=== PATIENT | male | born 1955 | race Caucasian/White ===

== ENCOUNTER → 2017-06-13 | Outpatient (CLI) | payer OTHER ==
--- NOTE | 2017-06-13 17:57 | RADIOLOGY REPORT (SQ) ---
EXAM DESCRIPTION: KUB COMPLETED DATE/TIME: 06/13/2017 3:05 pm REASON FOR STUDY: CALCULUS OF KIDNEY N20.0 CALCULUS OF KIDNEY COMPARISON: May 2016 NUMBER OF VIEWS: One view. TECHNIQUE: Supine radiographic image of the abdomen acquired. LIMITATIONS: None. FINDINGS: BOWEL GAS PATTERN: Normal bowel gas pattern. No dilated loops. CALCIFICATIONS: No suspicious calcifications. SOFT TISSUES: No gross mass or suggestion of organomegaly. HARDWARE: None in the abdomen. BONES: No acute fracture. No worrisome bone lesions. OTHER: No other significant finding. IMPRESSION: NO RADIOGRAPHIC EVIDENCE FOR ACUTE ABDOMINAL DISEASE. TECHNICAL DOCUMENTATION: JOB ID: [id number] [employer]- All Rights Reserved
== END ==
LOC: OD 14:49
PROVIDERS: ATTEND Urology
DX: N20.0 Calculus of kidney (principal)
CPT/HCPCS: 74000

== ENCOUNTER 2017-12-04 12:03 | Emergency (ER) | payer OTHER ==
[2017-12-04] MEDS ORDERED: DEXTROSE 50%-WATER 25 GM/50 ML DISP.SYRIN IV ONE ×2 (12:25→14:23)
--- NOTE | 2017-12-04 12:25 | ER Document Report ---
ED General - General Stated Complaint: BLOOD SUGAR CONCERNS Time Seen by Provider: 12/04/17 12:24 Notes: Patient has been taking 120 units of long-acting insulin at night. Has had a few episodes of hypoglycemia. Today while at work began to feel a little confused. Check blood sugar and it was 37. EMS arrived. Was given an amp of D50 as well as some oral glucose. Feeling better at this time. TRAVEL OUTSIDE OF THE [place] IN LAST 30 DAYS: No - HPI Onset: Just prior to arrival Onset/Duration: Sudden Quality of pain: No pain Associated symptoms: None - Related Data Allergies/Adverse Reactions: No Known Allergies Allergy (Unverified 09/29/14 13:58) Past Medical History - General Information source: Patient - Social History Smoking Status: Never Smoker Cigarette use (# per day): No Smoking Education Provided: No Drug Abuse: None Lives with: Family Family History: Reviewed & Not Pertinent - Past Medical History Cardiac Medical History: Reports: Hx Hypercholesterolemia, Hx Hypertension Denies: Hx Congestive Heart Failure, Hx Coronary Artery Disease, Hx DVT, Hx Pulmonary Embolism Pulmonary Medical History: Reports: Hx Bronchitis Denies: Hx Asthma, Hx COPD Neurological Medical History: Denies: Hx Seizures Endocrine Medical History: Reports: Hx Diabetes Mellitus Type 2. Denies: Hx Diabetes Mellitus Type 1, Hx Hyperthyroidism, Hx Hypothyroidism GI Medical History: Denies: Hx Cirrhosis, Hx Hepatitis Musculoskeltal Medical History: Reports Hx Arthritis Skin Medical History: Denies Hx Eczema, Denies Hx Psoriasis Psychiatric Medical History: Denies: Hx Depression Infectious Medical History: Denies: Hx Hepatitis Review of Systems - Review of Systems Constitutional: No symptoms reported, Chills, Diaphoresis, Weakness EENT: No symptoms reported Cardiovascular: No symptoms reported Respiratory: No symptoms reported Gastrointestinal: No symptoms reported Genitourinary: No symptoms reported Male Genitourinary: No symptoms reported Musculoskeletal: No symptoms reported Skin: No symptoms reported Hematologic/Lymphatic: No symptoms reported Neurological/Psychological: No symptoms reported Physical Exam - Vital signs Vitals: Resp Pulse Ox 19 94 12/04/17 12:29 12/04/17 12:29 Interpretation: Normal - General General appearance: Appears well, Alert - HEENT Head: Normocephalic, Atraumatic Eyes: Normal Pupils: PERRL - Respiratory Respiratory status: No respiratory distress Chest status: Nontender Breath sounds: Normal Chest palpation: Normal - Cardiovascular Rhythm: Regular Heart sounds: Normal auscultation Murmur: No - Abdominal Inspection: Normal Distension: No distension Bowel sounds: Normal Tenderness: Nontender Organomegaly: No organomegaly - Back Back: Normal, Nontender - Extremities General upper extremity: Normal inspection, Nontender, Normal color, Normal ROM , Normal temperature General lower extremity: Normal inspection, Nontender, Normal color, Normal ROM , Normal temperature, Normal weight bearing. No: Irena's sign - Neurological Neuro grossly intact: Yes Cognition: Normal Orientation: AAOx4 Mana Coma Scale Eye Opening: Spontaneous Mana Coma Scale Verbal: Oriented [place] Coma Scale Motor: Obeys Commands Mana Coma Scale Total: 15 Speech: Normal Motor strength normal: LUE, RUE, LLE, RLE Sensory: Normal - Psychological Associated symptoms: Normal affect, Normal mood - Skin Skin Temperature: Warm Skin Moisture: Dry Skin Color: Normal Course - Re-evaluation Re-evalutation: 12/04/17 13:46 The blood sugar after triage showed blood sugar trending back down. Second dose of D50 given. Will continue to monitor here and repeat blood draws. 12/04/17 15:26 Blood sugar coming up. Last blood sugar was 99. Patient has eaten. No further significant drops. Patient was given amp of D50 2. Strict instructions were given to the patient with regards to blood sugar. Will need to keep checking throughout the day. Gave instructions regarding what to do about his insulin dosing tonight. Comfortable discharging here shortly. 12/04/17 16:21 Sugar now 121. Patient feeling much better. Patient wants to go home. States he will continue to check his blood sugar throughout the afternoon and evening. Will DC. - Vital Signs Vital signs: Temp Pulse Resp BP Pulse Ox 19 146/93 H 94 12/04/17 16:01 12/04/17 16:01 12/04/17 16:01 - Laboratory Result Diagrams: 12/04/17 12:20 12/04/17 12:20 Laboratory results interpreted by me: 12/04/17 12/04/17 12/04/17 12:20 12:20 13:00 Lymphocytes % 12.1 L BUN 25 H Creatinine 1.45 H Est GFR ( Amer) 59 L Est GFR (Non-Af Amer) 49 L Glucose 40 L* POC Glucose 149 H - EKG Interpretation by Me EKG shows normal: Sinus rhythm, Ensign, Intervals, QRS Complexes, ST-T Waves When compared to previous EKG there are: No significant change - T-wave abnormalities but no significant change from prior Discharge - Discharge Clinical Impression: Diabetic hypoglycemia Condition: Good Instructions: Hypoglycemia ([facility]) Additional Instructions: Least decrease your long acting insulin to 90 units in the evening. Check your blood sugar in the morning as well as in the evening. Please call your fire claims adjuster and get medication changes as warranted. Return immediately for any worsening symptoms or concerns. Referrals: SHIELA QUINTEROS MD [Primary Care Provider] - Follow up as needed
[2017-12-04 12:53] LABS: ABSOLUTE BASOPHILS # (AUTO) 0.1 10^3/uL (0.0-0.2); ABSOLUTE EOSINOPHILS # (AUTO) 0.3 10^3/uL (0.0-0.6); ABSOLUTE LYMPHOCYTES (AUTO) 1.2 10^3/uL (0.5-4.7); ABSOLUTE NEUT (AUTO) 7.1 10^3/uL (1.7-8.2); BASOPHILS % (AUTO) 0.8 % (0-2); EOSINOPHILS % (AUTO) 3.6 % (0-6); LYMPHOCYTES % (AUTO) 12.1 % (13-45); MEAN CORPUSCULAR HEMOGLOBIN 32.3 pg (27.0-33.4); MEAN CORPUSCULAR HGB CONC 34.2 g/dL (32.0-36.0); MEAN CORPUSCULAR VOLUME 94 fl (80-97); MONOCYTES % (AUTO) 10.1 % (3-13); PLATELET COUNT 242 10^3/uL (150-450); RED BLOOD COUNT 4.35 10^6/uL (4.35-5.55); RED CELL DISTRIBUTION WIDTH 13.8 % (11.5-14.0); SEGMENTED NEUTROPHILS % (AUTO) 73.4 % (42-78); TOTAL CELLS COUNTED % (AUTO) 100 %; WHITE BLOOD COUNT 9.7 10^3/uL (4.0-10.5)
[2017-12-04 13:04] LABS: ALANINE AMINOTRANSFERASE 26 U/L (21-72); ALBUMIN 4.7 g/dL (3.5-5.0); ALKALINE PHOSPHATASE 87 U/L (38-126); ANION GAP 11 (5-19); ASPARTATE AMINO TRANSFERASE 36 U/L (17-59); BILIRUBIN,DIRECT 0.2 mg/dL (0.0-0.4); BILIRUBIN,TOTAL 0.6 mg/dL (0.2-1.3); BLOOD UREA NITROGEN 25 mg/dL (7-20); CALCIUM 9.7 mg/dL (8.4-10.2); CARBON DIOXIDE 26 mmol/L (22-30); CHLORIDE 105 mmol/L (98-107); POTASSIUM 4.1 mmol/L (3.6-5.0); SODIUM 141.5 mmol/L (137-145); TOTAL PROTEIN 8.1 g/dL (6.3-8.2)
[2017-12-04 13:11] LABS: GLUCOSE 40 mg/dL (75-110)
[2017-12-04 16:54] VITALS: BP 143/85
--- NOTE | 2017-12-04 18:24 | EKG REPORT ---
SEVERITY:- BORDERLINE ECG - SINUS RHYTHM BORDERLINE T WAVE ABNORMALITIES LATERAL LEADS. : Confirmed by: Hardeep Adamson MD 04-Dec-2017 18:23:57
== END 2017-12-04 17:03 | disposition home or self-care (01) ==
LOC: ER 12:03
DX: E11.649 Type 2 diabetes mellitus with hypoglycemia without coma (principal)
CPT/HCPCS: 93005; 96376; 99285; 96374; 36415; 82962; 85025; 80053; 84484; 93010; J3490

== ENCOUNTER 2018-05-14 17:12 | Inpatient (IN) | payer OTHER ==
--- NOTE | 2018-05-14 18:44 | ER Document Report ---
ED Medical Screen (RME) - General Chief Complaint: Foot Pain Stated Complaint: LEFT SWOLLEN TOE Time Seen by Provider: 05/14/18 18:41 Mode of Arrival: Ambulatory Information source: Patient Notes: 62 yo DM2 insulin dependednt, HTN, anxiety male accidentally snagged 2nd toe left foot nail off 2-3 weeks ago. sent by his primary care celina due to swelling and pain, red. not draining. Low grade fever. TRAVEL OUTSIDE OF THE [place] IN LAST 30 DAYS: No - Related Data Allergies/Adverse Reactions: No Known Allergies Allergy (Unverified 09/29/14 13:58) Past Medical History - Past Medical History Cardiac Medical History: Reports: Hx Hypercholesterolemia, Hx Hypertension Denies: Hx Congestive Heart Failure, Hx Coronary Artery Disease, Hx DVT, Hx Pulmonary Embolism Pulmonary Medical History: Reports: Hx Bronchitis Denies: Hx Asthma, Hx COPD Neurological Medical History: Denies: Hx Seizures Endocrine Medical History: Reports: Hx Diabetes Mellitus Type 2. Denies: Hx Diabetes Mellitus Type 1, Hx Hyperthyroidism, Hx Hypothyroidism Renal/ Medical History: Denies: Hx Peritoneal Dialysis GI Medical History: Denies: Hx Cirrhosis, Hx Hepatitis Musculoskeltal Medical History: Reports Hx Arthritis Skin Medical History: Denies Hx Eczema, Denies Hx Psoriasis Psychiatric Medical History: Denies: Hx Depression Infectious Medical History: Denies: Hx Hepatitis Past Surgical History: Reports: Hx Orthopedic Surgery - left hip Physical Exam - Vital signs Vitals: Temp Pulse Resp BP Pulse Ox 99.7 F 105 H 20 162/81 H 96 05/14/18 17:27 05/14/18 17:27 05/14/18 17:27 05/14/18 17:27 05/14/18 17:27 Course - Vital Signs Vital signs: Temp Pulse Resp BP Pulse Ox 99.7 F 105 H 20 162/81 H 96 05/14/18 17:27 05/14/18 17:27 05/14/18 17:27 05/14/18 17:27 05/14/18 17:27 Doctor's Discharge - Discharge Referrals: SHIELA QUINTEROS MD [Primary Care Provider] - Follow up as needed
[2018-05-14] MEDS ORDERED: VANCOMYCIN HCL INJ 1000 MG VIAL IV ONE (18:50)
[2018-05-14 19:34] LABS: VENOUS BLOOD BASE EXCESS 1.4 mmol/L; VENOUS BLOOD HCO3 26.8 mmol/L (20-32); VENOUS BLOOD PCO2 45.2 mmHg (35-63); VENOUS BLOOD PH 7.39 (7.30-7.42)
[2018-05-14 19:41] LABS: ABSOLUTE BASOPHILS # (AUTO) 0.1 10^3/uL (0.0-0.2); ABSOLUTE EOSINOPHILS # (AUTO) 0.1 10^3/uL (0.0-0.6); ABSOLUTE MONOCYTES (AUTO) 1.4 10^3/uL (0.1-1.4); ABSOLUTE NEUT (AUTO) 7.5 10^3/uL (1.7-8.2); BASOPHILS % (AUTO) 0.8 % (0-2); EOSINOPHILS % (AUTO) 1.3 % (0-6); HEMATOCRIT 42.2 % (37.9-51.0); HEMOGLOBIN 14.3 g/dL (13.5-17.0); LYMPHOCYTES % (AUTO) 9.6 % (13-45); MEAN CORPUSCULAR HEMOGLOBIN 31.7 pg (27.0-33.4); MEAN CORPUSCULAR HGB CONC 33.9 g/dL (32.0-36.0); MEAN CORPUSCULAR VOLUME 93 fl (80-97); MONOCYTES % (AUTO) 14.1 % (3-13); PLATELET COUNT 222 10^3/uL (150-450); RED BLOOD COUNT 4.52 10^6/uL (4.35-5.55); SEGMENTED NEUTROPHILS % (AUTO) 74.2 % (42-78); TOTAL CELLS COUNTED % (AUTO) 100 %; WHITE BLOOD COUNT 10.2 10^3/uL (4.0-10.5)
--- NOTE | 2018-05-14 19:47 | RADIOLOGY REPORT (SQ) ---
EXAM DESCRIPTION: FOOT LEFT COMPLETE COMPLETED DATE/TIME: 05/14/2018 7:39 pm REASON FOR STUDY: ulcer, decayed 2nd left toe COMPARISON: None. NUMBER OF VIEWS: Three views. TECHNIQUE: AP, lateral and oblique radiographic images acquired of the left foot. LIMITATIONS: None. FINDINGS: MINERALIZATION: Osteopenia. BONES: Old fracture of the 5th metatarsal. Heel spur. No evidence of focal bony destruction. JOINTS: No effusions. SOFT TISSUES: Soft tissue swelling. No foreign body. OTHER: No other significant finding. IMPRESSION: CHRONIC FINDINGS ABOVE. NO EVIDENCE OF FOCAL BONY DESTRUCTION. TECHNICAL DOCUMENTATION: JOB ID: [id number] [employer]- All Rights Reserved Reading location - IP/workstation name: [email or web address]
[2018-05-14 19:51] LABS: ALANINE AMINOTRANSFERASE 24 U/L (21-72); ALBUMIN 4.3 g/dL (3.5-5.0); ALKALINE PHOSPHATASE 90 U/L (38-126); ANION GAP 14 (5-19); ASPARTATE AMINO TRANSFERASE 25 U/L (17-59); BILIRUBIN,DIRECT 0.4 mg/dL (0.0-0.4); BLOOD UREA NITROGEN 25 mg/dL (7-20); CALCIUM 9.6 mg/dL (8.4-10.2); CARBON DIOXIDE 29 mmol/L (22-30); CHLORIDE 102 mmol/L (98-107); GLUCOSE 139 mg/dL (75-110); POTASSIUM 5.2 mmol/L (3.6-5.0); SODIUM 144.8 mmol/L (137-145); TOTAL PROTEIN 7.7 g/dL (6.3-8.2)
[2018-05-14] MEDS ORDERED: GLUCAGON,HUMAN RECOMB 1 MG INJ IM PRN (21:35)
[2018-05-14] MEDS ORDERED: DEXTROSE 40% GEL 15 GM TUBE PO PRN ×2 (21:35)
[2018-05-14] MEDS ORDERED: DEXTROSE 50%-WATER 25 GM/50 ML DISP.SYRIN IV PRN ×2 (21:35)
[2018-05-14] MEDS ORDERED: ONDANSETRON HCL INJ/PF 4 MG/2 ML SDV IV PRN (21:36)
[2018-05-14] MEDS ORDERED: IPRATROPIUM/ALBUTEROL 0.5-2.5 MG/3 ML AMPUL NEB PRN (21:36)
[2018-05-14] MEDS ORDERED: MAGNESIUM HYDROXIDE SUSP 30 ML UDCUP PO PRN (21:36)
[2018-05-14] MEDS ORDERED: ACETAMINOPHEN 325 MG TABLET PO PRN (21:36)
[2018-05-14] MEDS ORDERED: MAG HYDROX/AL HYDROX/SIMETH SUSP 30 ML UDCUP PO PRN (21:36)
--- NOTE | 2018-05-14 21:38 | ER Document Report ---
ED General - General Chief Complaint: Foot Pain Stated Complaint: LEFT SWOLLEN TOE Time Seen by Provider: 05/14/18 18:41 Mode of Arrival: Ambulatory TRAVEL OUTSIDE OF THE [place] IN LAST 30 DAYS: No - HPI Patient complains to provider of: Left toe infection Notes: Patient is diabetic coming in for left toe infection second toe states is red and swollen and draining did hit his toe approximately 3-4 days ago. Denies any fevers chills nausea vomiting. - Related Data Allergies/Adverse Reactions: morphine Allergy (Verified 05/14/18 22:40) Past Medical History - General Information source: Patient - Social History Smoking Status: Never Smoker Chew tobacco use (# tins/day): No Frequency of alcohol use: None Drug Abuse: None Family History: Reviewed & Not Pertinent Patient has suicidal ideation: No Patient has homicidal ideation: No - Past Medical History Cardiac Medical History: Reports: Hx Hypercholesterolemia, Hx Hypertension Denies: Hx Congestive Heart Failure, Hx Coronary Artery Disease, Hx DVT, Hx Pulmonary Embolism Pulmonary Medical History: Reports: Hx Bronchitis Denies: Hx Asthma, Hx COPD Neurological Medical History: Denies: Hx Seizures Endocrine Medical History: Reports: Hx Diabetes Mellitus Type 2. Denies: Hx Diabetes Mellitus Type 1, Hx Hyperthyroidism, Hx Hypothyroidism Renal/ Medical History: Denies: Hx Peritoneal Dialysis GI Medical History: Denies: Hx Cirrhosis, Hx Hepatitis Musculoskeltal Medical History: Reports Hx Arthritis Skin Medical History: Denies Hx Eczema, Denies Hx Psoriasis Psychiatric Medical History: Denies: Hx Depression Infectious Medical History: Denies: Hx Hepatitis Past Surgical History: Reports: Hx Orthopedic Surgery - left hip Review of Systems - Review of Systems Constitutional: No symptoms reported EENT: No symptoms reported Cardiovascular: No symptoms reported Respiratory: No symptoms reported Gastrointestinal: No symptoms reported Genitourinary: No symptoms reported Male Genitourinary: No symptoms reported Musculoskeletal: No symptoms reported Skin: Other - Toe infection Hematologic/Lymphatic: No symptoms reported Neurological/Psychological: No symptoms reported -: Yes All other systems reviewed and negative Physical Exam - Vital signs Vitals: Temp Pulse Resp BP Pulse Ox 99.7 F 105 H 20 162/81 H 96 05/14/18 17:27 05/14/18 17:27 05/14/18 17:27 05/14/18 17:27 05/14/18 17:27 Interpretation: Normal - General General appearance: Appears well, Alert - HEENT Head: Normocephalic, Atraumatic Eyes: Normal Pupils: PERRL - Respiratory Respiratory status: No respiratory distress Chest status: Nontender Breath sounds: Normal Chest palpation: Normal - Cardiovascular Rhythm: Regular Heart sounds: Normal auscultation Murmur: No - Abdominal Inspection: Normal Distension: No distension Bowel sounds: Normal Tenderness: Nontender Organomegaly: No organomegaly - Back Back: Normal, Nontender - Extremities General upper extremity: Normal inspection, Nontender, Normal color, Normal ROM , Normal temperature General lower extremity: Normal color, Normal ROM, Normal temperature, Normal weight bearing. No: Normal inspection - Patient has a red swollen second toe with purulent material expressed at the tip of the toe. Tip of the toe is white decreased cap refill although the entire toe is swollen red on the dorsum and on the plantar side slight area of necrosis on the end of the toe with erythema going across the first joint of the toes, Irena's sign - Neurological Neuro grossly intact: Yes Cognition: Normal Orientation: AAOx4 Mana Coma Scale Eye Opening: Spontaneous [place] Coma Scale Verbal: Oriented [place] Coma Scale Motor: Obeys Commands [place] Coma Scale Total: 15 Speech: Normal Motor strength normal: LUE, RUE, LLE, RLE Sensory: Normal - Psychological Associated symptoms: Normal affect, Normal mood - Skin Skin Temperature: Warm Skin Moisture: Dry Skin Color: Normal Course - Re-evaluation Re-evalutation: 05/14/18 23:24 Patient with a diabetic foot infection did discuss with surgery requested admission to the hospitalist patient does have some medical issues to be managed will evaluate the patient in the morning. Patient started on antibiotics discussed with hospitalist agree with medical admission - Vital Signs Vital signs: Temp Pulse Resp BP Pulse Ox 99.2 F 98 16 163/89 H 93 05/14/18 22:28 05/14/18 22:28 05/14/18 22:28 05/14/18 22:28 05/14/18 22:28 - Laboratory Result Diagrams: 05/14/18 19:20 05/14/18 19:20 Laboratory results interpreted by me: 05/14/18 05/14/18 19:20 19:20 Lymphocytes % 9.6 L Monocytes % 14.1 H Potassium 5.2 H BUN 25 H Creatinine 1.64 H Est GFR ( Amer) 51 L Est GFR (Non-Af Amer) 43 L Glucose 139 H Discharge - Discharge Clinical Impression: Diabetic foot infection, CKD (chronic kidney disease), stage III HTN (hypertension) Qualifiers: Hypertension type: unspecified Qualified Code(s): I10 - Essential (primary) hypertension Condition: Good Disposition: ADMITTED INPATIENT Admitting Provider: Hospitalist - [facility] Unit Admitted: Medical Floor
[2018-05-14] MEDS ORDERED: NORMAL SALINE 1000 ML 1,000 ML IV SCH (21:45)
[2018-05-14] MEDS ORDERED: VANCOMYCIN HCL 0 MG in DEXTROSE 5%-WATER 250 ML IV NR (21:45)
[2018-05-14] MEDS ORDERED: CEFEPIME 2 GM/D5W RTU 2 GM/50 ML RTUPB IV SCH (22:00)
[2018-05-14] MEDS ORDERED: CEFEPIME 1 GM/D5W RTU 1 GM/50 ML RTUPB IV SCH (22:00)
[2018-05-14] MEDS ORDERED: HEPARIN SOD (PORCINE) 5,000 UNIT/ML 1 ML SYRINGE SUBCUT SCH (22:00)
--- NOTE | 2018-05-14 23:28 | PDOC CONSULTATION ---
Consultation Consult Date: 05/14/18 Consult reason:: left 2nd toe gangrene History of Present Illness Admission Date/PCP: 05/14/18 21:42 History of Present Illness: GABE MATHEWS is a 62 year old male with of NIDDM for several years, insensate left foot, recent left second toe nail traumatic avulsion, now complicated by total toe redness and swelling, edema of the left foot, tenderness of the left foot and calf and skin changes. Past Medical History Cardiac Medical History: Reports: Hyperlipidema, Hypertension Denies: Congestive Heart Failure, Coronary Artery Disease, DVT, Pulmonary Embolism Pulmonary Medical History: Reports: Bronchitis Denies: Asthma, Chronic Obstructive Pulmonary Disease (COPD) Neurological Medical History: Denies: Seizures Endocrine Medical History: Reports: Diabetes Mellitus Type 2 Denies: Diabetes Mellitus Type 1, Hyperthyroidism, Hypothyroidism GI Medical History: Denies: Cirrhosis, Hepatitis Musculoskeltal Medical History: Reports: Arthritis Skin Medical History: Denies: Eczema, Psoriasis Psychiatric Medical History: Denies: Depression Past Surgical History Past Surgical History: Reports: Orthopedic Surgery - left hip Social History Smoking Status: Never Smoker Frequency of Alcohol Use: Rare Hx Recreational Drug Use: No Drugs: None Hx Prescription Drug Abuse: No - Advance Directive Resuscitation Status: Full Code Family History Family History: Reviewed & Not Pertinent Parental Family History Reviewed: No Children Family History Reviewed: No Sibling(s) Family History Reviewed.: No Medication/Allergy Home Medications: Sertraline HCl [Zoloft 50 mg Tablet] 100 mg PO DAILY 09/29/14 Simvastatin 40 mg PO QHS 09/29/14 Clonidine HCl 0.1 mg PO DAILY 08/21/16 Metoprolol Succinate [Toprol Xl] 100 mg PO DAILY 08/21/16 Clonazepam 0.5 mg PO DAILY 05/14/18 Allergies/Adverse Reactions: morphine Allergy (Verified 05/14/18 22:40) Physical Exam Vital Signs: Temp Pulse Resp BP Pulse Ox 99.2 F 98 16 163/89 H 93 05/14/18 22:28 05/14/18 22:28 05/14/18 22:28 05/14/18 22:28 05/14/18 22:28 General appearance: PRESENT: no acute distress, cooperative Head exam: PRESENT: atraumatic Eye exam: PRESENT: EOMI Mouth exam: PRESENT: moist, neck supple Respiratory exam: PRESENT: clear to auscultation pee Cardiovascular exam: PRESENT: RRR GI/Abdominal exam: PRESENT: soft - obese Rectal exam: PRESENT: deferred Extremities exam: PRESENT: +1 edema - left foot, other - Left foot= fixed red pigmentation entire 2nd toe, area of skin necrosis of the distal phalanx, no blanching Results Impressions: Foot X-Ray 05/14/18 18:45 IMPRESSION: CHRONIC FINDINGS ABOVE. NO EVIDENCE OF FOCAL BONY DESTRUCTION. Assessment & Plan - Plan Summary Plan Summary: A/ left 2nd toe ischemia with initial gangrene Diffuse swelling with tenderness of the left foot hx of NIDDM multiple medical problems (see above) Chronic kidney failure P/ I went through the options with the patient: conservative management, vs toe amputation. My recommendation is early toe amputation which will save the patient time in hospital, discomfort and would prevent spreading of local infection. Plan 2nd left toe amoutatiuon tomorrow. Procedure, risks, complications, and benefits explained to the patient, he understands all the above, his questions were answered, and he decided to proceed. Continue IV antibiotics NPO after midnight IVF EKG preop
[2018-05-14] MEDS ORDERED: NORMAL SALINE 1000 ML 1,000 ML IV PRN (23:33)
[2018-05-15] MEDS: VANCOMYCIN HCL 1,500 MG in DEXTROSE 5%-WATER 250 ML IV SCH ×3 (01:06→22:45)
[2018-05-15] MEDS ORDERED: LACTULOSE SYRUP 20 GM/30 ML UDCUP PO ONE (02:20)
--- NOTE | 2018-05-15 03:43 | PDOC H&P ---
History of Present Illness Admission Date/PCP: 05/14/18 21:42 Patient complains of: Second toe of left foot pain and swelling History of Present Illness: GABE MATHEWS is a 62 year old male with history of diabetes, dyslipidemia and obesity presents with swelling erythema and pain to his left second toe prompting evaluation emergency room. He is found to have leukocytosis and a markedly swollen, ulcerated toe with purulent drainage. He denies fever chills nausea vomiting he denies recent antibiotic use or trauma. Denies previous episode. In the emergency room he is started on empiric antibiotics of vancomycin and cefepime and referred to the hospitalist for admission. Past Medical History Cardiac Medical History: Reports: Hyperlipidema, Hypertension Denies: Congestive Heart Failure, Coronary Artery Disease, DVT, Pulmonary Embolism Pulmonary Medical History: Reports: Bronchitis Denies: Asthma, Chronic Obstructive Pulmonary Disease (COPD) Neurological Medical History: Denies: Seizures Endocrine Medical History: Reports: Diabetes Mellitus Type 2 Denies: Diabetes Mellitus Type 1, Hyperthyroidism, Hypothyroidism GI Medical History: Denies: Cirrhosis, Hepatitis Musculoskeltal Medical History: Reports: Arthritis Skin Medical History: Denies: Eczema, Psoriasis Psychiatric Medical History: Denies: Depression Past Surgical History Past Surgical History: Reports: Orthopedic Surgery - left hip Social History Information Source: Patient Lives with: Spouse/Significant other Smoking Status: Never Smoker Frequency of Alcohol Use: Rare Hx Recreational Drug Use: No Drugs: None Hx Prescription Drug Abuse: No - Advance Directive Resuscitation Status: Full Code Family History Family History: DM, Hyperlipidemia Parental Family History Reviewed: Yes Children Family History Reviewed: Yes Sibling(s) Family History Reviewed.: Yes Medication/Allergy Home Medications: Sertraline HCl [Zoloft 50 mg Tablet] 100 mg PO DAILY 09/29/14 Simvastatin 40 mg PO QHS 09/29/14 Clonidine HCl 0.1 mg PO DAILY 08/21/16 Metoprolol Succinate [Toprol Xl] 100 mg PO DAILY 08/21/16 Clonazepam 0.5 mg PO DAILY 05/14/18 Allergies/Adverse Reactions: morphine Allergy (Verified 05/14/18 22:40) Review of Systems Constitutional: PRESENT: as per HPI, fatigue. ABSENT: chills, fever(s), headache(s), weight gain, weight loss Eyes: ABSENT: visual disturbances Ears: ABSENT: hearing changes Cardiovascular: ABSENT: chest pain, dyspnea on exertion, edema, orthropnea, palpitations Respiratory: ABSENT: cough, hemoptysis Gastrointestinal: PRESENT: constipation. ABSENT: abdominal pain, diarrhea, hematemesis, hematochezia, nausea, vomiting Genitourinary: ABSENT: dysuria, hematuria Musculoskeletal: PRESENT: as per HPI. ABSENT: joint swelling Integumentary: ABSENT: rash, wounds Neurological: ABSENT: abnormal gait, abnormal speech, confusion, dizziness, focal weakness, syncope Psychiatric: ABSENT: anxiety, depression, homidical ideation, suicidal ideation Endocrine: ABSENT: cold intolerance, heat intolerance, polydipsia, polyuria Hematologic/Lymphatic: ABSENT: easy bleeding, easy bruising Physical Exam Vital Signs: Temp Pulse Resp BP Pulse Ox 97.7 F 96 20 172/91 H 95 05/14/18 23:25 05/14/18 23:25 05/14/18 23:25 05/14/18 23:25 05/14/18 23:25 General appearance: PRESENT: cooperative, mild distress, well-developed, well- nourished. ABSENT: disheveled Head exam: PRESENT: atraumatic, normocephalic Eye exam: PRESENT: conjunctiva pink, EOMI, PERRLA. ABSENT: scleral icterus Ear exam: PRESENT: normal external ear exam Mouth exam: PRESENT: moist, tongue midline Neck exam: ABSENT: carotid bruit, JVD, lymphadenopathy, thyromegaly Respiratory exam: PRESENT: clear to auscultation pee. ABSENT: rales, rhonchi, wheezes Cardiovascular exam: PRESENT: RRR. ABSENT: diastolic murmur, rubs, systolic murmur Pulses: PRESENT: normal dorsalis pedis pul Vascular exam: PRESENT: normal capillary refill GI/Abdominal exam: PRESENT: normal bowel sounds, soft. ABSENT: distended, guarding, mass, organolmegaly, rebound, tenderness Rectal exam: PRESENT: deferred Extremities exam: PRESENT: full ROM, other - Markedly edematous, erythemic with 0.50.5 cm purulent ulcer of the second toe left foot. ABSENT: calf tenderness , clubbing, pedal edema Neurological exam: PRESENT: alert, awake, oriented to person, oriented to place , oriented to time, oriented to situation, CN II-XII grossly intact. ABSENT: motor sensory deficit Psychiatric exam: PRESENT: appropriate affect, normal mood. ABSENT: homicidal ideation, suicidal ideation Skin exam: PRESENT: dry, intact, warm. ABSENT: cyanosis, rash Results Impressions: Foot X-Ray 05/14/18 18:45 IMPRESSION: CHRONIC FINDINGS ABOVE. NO EVIDENCE OF FOCAL BONY DESTRUCTION. Assessment & Plan - Diagnosis (1) Diabetic foot infection Is this a current diagnosis for this admission?: Yes Plan: Empiric antibiotics, follow-up surgery consult, blood culture, wound culture and CBC (2) HTN (hypertension) Qualifiers: Is this a current diagnosis for this admission?: Yes Plan: JES inhibitor with as needed hydralazine (3) CKD (chronic kidney disease), stage III Is this a current diagnosis for this admission?: Yes Plan: At baseline, avoid nephrotoxic meds and doses, follow-up chemistry (4) Diabetes mellitus type II, controlled, with no complications Is this a current diagnosis for this admission?: Yes Plan: Outpatient regiment with Humalog sliding scale avoiding metformin and patient (5) Hyperkalemia Is this a current diagnosis for this admission?: Yes Plan: Secondary to chronic kidney disease and constipation, lactulose trial, follow- up chemistry (6) Constipation Is this a current diagnosis for this admission?: Yes Plan: Bowel regiment and trial lactulose - Time Time Spent: 50 to 70 Minutes - Inpatient Certification Medical Necessity: Need Close Monitoring Due to Risk of Patient Decompensation
[2018-05-15 08:02] LABS: ABSOLUTE BASOPHILS # (AUTO) 0.1 10^3/uL (0.0-0.2); ABSOLUTE EOSINOPHILS # (AUTO) 0.2 10^3/uL (0.0-0.6); ABSOLUTE LYMPHOCYTES (AUTO) 1.3 10^3/uL (0.5-4.7); ABSOLUTE MONOCYTES (AUTO) 1.4 10^3/uL (0.1-1.4); BASOPHILS % (AUTO) 0.7 % (0-2); EOSINOPHILS % (AUTO) 2.1 % (0-6); HEMATOCRIT 41.2 % (37.9-51.0); LYMPHOCYTES % (AUTO) 12.6 % (13-45); MEAN CORPUSCULAR HEMOGLOBIN 31.8 pg (27.0-33.4); MEAN CORPUSCULAR HGB CONC 34.1 g/dL (32.0-36.0); MEAN CORPUSCULAR VOLUME 93 fl (80-97); MONOCYTES % (AUTO) 14.4 % (3-13); PLATELET COUNT 241 10^3/uL (150-450); RED BLOOD COUNT 4.41 10^6/uL (4.35-5.55); SEGMENTED NEUTROPHILS % (AUTO) 70.2 % (42-78); TOTAL CELLS COUNTED % (AUTO) 100 %; WHITE BLOOD COUNT 9.9 10^3/uL (4.0-10.5)
[2018-05-15 08:14] LABS: ANION GAP 16 (5-19); BLOOD UREA NITROGEN 24 mg/dL (7-20); CALCIUM 9.3 mg/dL (8.4-10.2); CARBON DIOXIDE 23 mmol/L (22-30); CHLORIDE 103 mmol/L (98-107); GLUCOSE 157 mg/dL (75-110); POTASSIUM 4.9 mmol/L (3.6-5.0); SODIUM 141.5 mmol/L (137-145)
--- NOTE | 2018-05-15 09:37 | EKG REPORT ---
SEVERITY:- BORDERLINE ECG - SINUS RHYTHM BORDERLINE T WAVE ABNORMALITIES : Confirmed by: Brandy Mars 15-May-2018 09:37:15
[2018-05-15] MEDS: CEFEPIME 1 GM/D5W RTU 1 GM/50 ML RTUPB IV SCH ×2 (09:38→22:45)
[2018-05-15] MEDS: SERTRALINE HCL 50 MG TABLET PO SCH (09:39)
[2018-05-15] MEDS: METOPROLOL SUCCINATE 50 MG TAB.SR.24H PO SCH (09:39)
[2018-05-15] MEDS: DOCUSATE SODIUM 100 MG CAPSULE PO SCH ×2 (09:40→18:28)
[2018-05-15] MEDS: CLONAZEPAM 1 MG TABLET PO SCH (09:40)
[2018-05-15] MEDS: CLONIDINE HCL 0.1 MG TABLET PO SCH (09:41)
[2018-05-15] MEDS ORDERED: CEFEPIME HCL 1 GM in DEXTROSE 5%-WATER 50 ML IV SCH (10:00)
[2018-05-15] MEDS ORDERED: LIDOCAINE 1% INJ-PF (10 MG/ML) 30 ML SDV ONE (12:48)
[2018-05-15] MEDS ORDERED: BUPIVACAINE HCL 0.25 % INJ/PF (2.5 MG/1 ML) 30 ML VIAL ONE (12:48)
[2018-05-15] MEDS ORDERED: PROPOFOL INJ 200 MG/20 ML VIAL IV ONE (12:51)
[2018-05-15] MEDS ORDERED: MIDAZOLAM 2 MG/2 ML INJ ONE (12:51)
[2018-05-15] MEDS ORDERED: FENTANYL CITRATE INJ/PF 100 MCG/2 ML AMPUL ONE (12:51)
--- NOTE | 2018-05-15 13:22 | PDOC PROGRESS REPORT ---
Subjective Progress Note for:: 05/15/18 Subjective:: 62 y/o M with severe diabetic foot infection and gangrene. He denies CP, SOB, N/ V, fatigue, dizziness, blurry vision. Reason For Visit: DIABETIC TOE CELLULITIS Physical Exam Vital Signs: Temp Pulse Resp BP Pulse Ox 99.0 F 84 14 172/90 H 97 05/15/18 12:29 05/15/18 12:29 05/15/18 12:29 05/15/18 12:29 05/15/18 12:29 Intake & Output 05/14/18 05/15/18 05/16/18 06:59 06:59 06:59 Intake Total 422 Balance 422 General appearance: PRESENT: no acute distress Head exam: PRESENT: atraumatic, normocephalic Eye exam: PRESENT: EOMI, PERRLA. ABSENT: scleral icterus Mouth exam: PRESENT: moist, neck supple Neck exam: ABSENT: meningismus, tenderness, thyromegaly, tracheal deviation Respiratory exam: PRESENT: clear to auscultation pee. ABSENT: chest wall tenderness, wheezes Cardiovascular exam: PRESENT: RRR Pulses: PRESENT: normal radial pulses, other - palpable DP pulse on left GI/Abdominal exam: PRESENT: soft. ABSENT: distended, tenderness Rectal exam: PRESENT: deferred Extremities exam: PRESENT: pedal edema - left Neurological exam: PRESENT: alert, awake, oriented to person, oriented to place , oriented to time, oriented to situation, CN II-XII grossly intact. ABSENT: motor sensory deficit Psychiatric exam: ABSENT: agitated, anxious, depressed Skin exam: PRESENT: erythema - left 2nd toe. ABSENT: cyanosis Results Laboratory Results: 05/15/18 06:43 05/15/18 06:43 05/15/18 05/15/18 06:43 06:43 WBC 9.9 RBC 4.41 Hgb 14.0 Hct 41.2 MCV 93 MCH 31.8 MCHC 34.1 RDW 14.0 Plt Count 241 Seg Neutrophils % 70.2 Lymphocytes % 12.6 L Monocytes % 14.4 H Eosinophils % 2.1 Basophils % 0.7 Absolute Neutrophils 7.0 Absolute Lymphocytes 1.3 Absolute Monocytes 1.4 Absolute Eosinophils 0.2 Absolute Basophils 0.1 Sodium 141.5 Potassium 4.9 Chloride 103 Carbon Dioxide 23 Anion Gap 16 BUN 24 H Creatinine 1.47 H Est GFR ( Amer) 58 L Est GFR (Non-Af Amer) 48 L Glucose 157 H Calcium 9.3 Impressions: Foot X-Ray 05/14/18 18:45 IMPRESSION: CHRONIC FINDINGS ABOVE. NO EVIDENCE OF FOCAL BONY DESTRUCTION. Assessment & Plan - Diagnosis (1) Diabetic foot infection Is this a current diagnosis for this admission?: Yes - Plan Summary Plan Summary: 62 y/o M with a severe diabetic foot infection. He has gangrene, and will require amputation. Risks/benefits discussed, informed consent obtained, and all questions answered.
[2018-05-15] MEDS ORDERED: DIPHENHYDRAMINE HCL 50 MG/ML VIAL IV PRN (13:40)
[2018-05-15] MEDS ORDERED: FENTANYL CITRATE INJ/PF 100 MCG/2 ML AMPUL IV PRN ×3 (13:40)
[2018-05-15] MEDS ORDERED: PROMETHAZINE HCL INJ 25 MG/1 ML VIAL IV PRN (13:40)
[2018-05-15] MEDS ORDERED: ONDANSETRON 4 MG TAB.RAPDIS PO PRN (15:12)
--- NOTE | 2018-05-15 15:39 | Physician Advisory Note ---
Physician Advisor ProgressNote .: Pursuant to the plan for [facility], I have reviewed the medical record for this patient. Physician Advisor Statement: Please consider documenting, if you agree: 1. What is pt's baseline Cr? (1.1? 1.3? ...) - Is there "PAUL, likely due to " (if baseline Cr is <1.34) present, instead of "CKD stage 3"? 2. "DM-2 with " (foot ulcer/nephropathy/neuropathy/PVD/...) - rather than "no complications" Thanks! CK
[2018-05-15] MEDS: TRAMADOL HCL 50 MG TABLET PO PRN ×2 (15:48→19:52)
--- NOTE | 2018-05-15 16:06 | Operative Report ---
Nonrecallable Operative Report DATE OF SURGERY: 05/15/18 PREOPERATIVE DIAGNOSIS: Gangrene of the left second toe POSTOPERATIVE DIAGNOSIS: Same as above OPERATION: Ray amputation of the left second toe SURGEON: FAWAD LUNA ANESTHESIA: LMAC TISSUE REMOVED OR ALTERED: Left second toe COMPLICATIONS: None apparent ESTIMATED BLOOD LOSS: 10 cc PROCEDURE: Drains/implants: 4 x 4 gauze. Procedure in detail: After informed consent was obtained, the patient was laid in the supine position in the operating room. The left foot was prepped and draped in a normal sterile fashion. A tennis racquet incision was created around the second toe on the left foot with a 15 blade scalpel. Dissection was carried down to the bone. The toe was disarticulated from the MTP joint. After this was completed, the metatarsal head was removed with large bone cutters. Hemostasis was achieved using Bovie electrocautery. A single interrupted 2-0 Vicryl stitch was used to reapproximate the deep tissue over the bone. The skin was left open and packed with 4 x 4 gauze. A dressing was then fashioned, and the procedure was concluded. All sponge, instrument, and needle counts were correct 2. Condition: Fair.
[2018-05-15] MEDS: INSULIN LISPRO 100 UNIT/ML 3 ML VIAL SUBCUT PRN (18:28)
[2018-05-15] MEDS: SIMVASTATIN 40 MG TABLET PO SCH (22:45)
[2018-05-15] MEDS ORDERED: TRAMADOL HCL 50 MG TABLET PO ONE (23:00)
[2018-05-16] MEDS: TRAMADOL HCL 50 MG TABLET PO PRN ×5 (02:23→23:55)
[2018-05-16] MEDS: INSULIN LISPRO 100 UNIT/ML 3 ML VIAL SUBCUT PRN ×3 (08:06→17:21)
[2018-05-16] MEDS: CLONAZEPAM 1 MG TABLET PO SCH (09:32)
[2018-05-16] MEDS: CEFEPIME 1 GM/D5W RTU 1 GM/50 ML RTUPB IV SCH ×2 (09:32→21:42)
[2018-05-16] MEDS: DOCUSATE SODIUM 100 MG CAPSULE PO SCH ×2 (09:32→17:21)
[2018-05-16] MEDS: SERTRALINE HCL 50 MG TABLET PO SCH (09:33)
[2018-05-16] MEDS: METOPROLOL SUCCINATE 50 MG TAB.SR.24H PO SCH (09:33)
[2018-05-16] MEDS: CLONIDINE HCL 0.1 MG TABLET PO SCH (09:33)
--- NOTE | 2018-05-16 10:19 | PDOC PROGRESS REPORT ---
Subjective Progress Note for:: 05/16/18 Subjective:: comfortable Reason For Visit: DIABETIC TOE CELLULITIS Physical Exam Vital Signs: Temp Pulse Resp BP Pulse Ox 98.7 F 84 20 164/86 H 94 05/16/18 00:22 05/16/18 00:22 05/16/18 00:22 05/16/18 00:22 05/16/18 00:22 Intake & Output 05/15/18 05/16/18 05/17/18 06:59 06:59 06:59 Intake Total 422 1637 Output Total 310 Balance 422 1327 Weight 122 kg Results Laboratory Results: 05/15/18 06:43 05/15/18 06:43 Impressions: Foot X-Ray 05/14/18 18:45 IMPRESSION: CHRONIC FINDINGS ABOVE. NO EVIDENCE OF FOCAL BONY DESTRUCTION. Assessment & Plan - Diagnosis (1) Diabetic foot infection Is this a current diagnosis for this admission?: Yes - Plan Summary Plan Summary: A/ POD #1 after left second toe amputation, wound left open VSS, AF Wound clean, pink, no odor, no drainage, edges edematous P/ Continue LLE elevation and no weight bearing Continue IV Abx WoundVac to left foot wound Patient to return to surgery on POD #5 for final wound closure
[2018-05-16 11:33] LABS: VANCOMYCIN,TROUGH 20.1 ug/mL (5.0-20.0)
[2018-05-16] MEDS: VANCOMYCIN HCL 1,000 MG in DEXTROSE 5%-WATER 250 ML IV SCH (21:42)
[2018-05-16] MEDS: SIMVASTATIN 40 MG TABLET PO SCH (21:42)
[2018-05-17] MEDS: TRAMADOL HCL 50 MG TABLET PO PRN ×5 (05:52→22:34)
[2018-05-17] MEDS: INSULIN LISPRO 100 UNIT/ML 3 ML VIAL SUBCUT PRN ×4 (07:43→22:36)
[2018-05-17] MEDS: CLONAZEPAM 1 MG TABLET PO SCH (10:00)
[2018-05-17] MEDS: CLONIDINE HCL 0.1 MG TABLET PO SCH (10:00)
[2018-05-17] MEDS: SERTRALINE HCL 50 MG TABLET PO SCH (10:01)
[2018-05-17] MEDS: METOPROLOL SUCCINATE 50 MG TAB.SR.24H PO SCH (10:02)
[2018-05-17] MEDS: DOCUSATE SODIUM 100 MG CAPSULE PO SCH ×2 (10:02→17:00)
[2018-05-17] MEDS: CEFEPIME 1 GM/D5W RTU 1 GM/50 ML RTUPB IV SCH ×2 (10:02→21:27)
--- NOTE | 2018-05-17 10:37 | PDOC PROGRESS REPORT ---
Subjective Progress Note for:: 05/17/18 Subjective:: no c/o Reason For Visit: DIABETIC TOE CELLULITIS Physical Exam Vital Signs: Temp Pulse Resp BP Pulse Ox 98.8 F 79 16 169/84 H 94 05/17/18 07:54 05/17/18 07:54 05/17/18 07:54 05/17/18 07:54 05/17/18 07:54 Intake & Output 05/16/18 05/17/18 05/18/18 06:59 06:59 06:59 Intake Total 1637 1390 Output Total 310 Balance 1327 1390 Weight 122 kg 120.9 kg General appearance: PRESENT: no acute distress, cooperative Extremities exam: PRESENT: other - Left foot= woundvac in place, in webspace after amputation, mild erythema Results Laboratory Results: 05/15/18 06:43 05/15/18 06:43 Impressions: Foot X-Ray 05/14/18 18:45 IMPRESSION: CHRONIC FINDINGS ABOVE. NO EVIDENCE OF FOCAL BONY DESTRUCTION. Assessment & Plan - Diagnosis (1) Diabetic foot infection Is this a current diagnosis for this admission?: Yes - Plan Summary Plan Summary: A/ POD #2 after amputation Left foot 2nd toe Mild erythema right foot amputation site WoundVac left foot amputation P/ Plan secondary closure in 48 hours
--- NOTE | 2018-05-17 11:12 | PDOC PROGRESS REPORT ---
Subjective Progress Note for:: 05/17/18 Subjective:: This is 62 years old male patient admitted for cellulitis and left foot diabetic ulcer involving the second toe. He is being managed with cefepime and he is also status post left second toe amputation postoperative day 2. Patient has most postoperative course. I seen him today while he is sitting on recliner. Is not in pain or distress. Reason For Visit: DIABETIC TOE CELLULITIS Physical Exam Vital Signs: Temp Pulse Resp BP Pulse Ox 98.8 F 80 16 169/84 H 93 05/17/18 07:54 05/17/18 10:36 05/17/18 10:36 05/17/18 07:54 05/17/18 10:36 Intake & Output 05/16/18 05/17/18 05/18/18 06:59 06:59 06:59 Intake Total 1637 1390 Output Total 310 Balance 1327 1390 Weight 122 kg 120.9 kg General appearance: PRESENT: no acute distress, well-developed, well-nourished Eye exam: PRESENT: conjunctiva pink, EOMI, PERRLA. ABSENT: scleral icterus Respiratory exam: PRESENT: clear to auscultation pee. ABSENT: rales, rhonchi, wheezes Cardiovascular exam: PRESENT: RRR. ABSENT: diastolic murmur, rubs, systolic murmur GI/Abdominal exam: PRESENT: normal bowel sounds, soft. ABSENT: distended, guarding, mass, organolmegaly, rebound, tenderness Extremities exam: PRESENT: other - Left second toe amputation. Wound VAC is in situ. There is mild erythema at the amputation site. Neurological exam: PRESENT: alert, awake, oriented to time, oriented to situation Psychiatric exam: PRESENT: normal mood Results Laboratory Results: 05/15/18 06:43 05/15/18 06:43 Impressions: Foot X-Ray 05/14/18 18:45 IMPRESSION: CHRONIC FINDINGS ABOVE. NO EVIDENCE OF FOCAL BONY DESTRUCTION. Assessment & Plan - Diagnosis (1) Diabetic foot infection Is this a current diagnosis for this admission?: Yes Plan: Continue IV cefepime. Surgical wound management per Dr. Joseph (2) Constipation Is this a current diagnosis for this admission?: Yes Plan: Resolved (3) HTN (hypertension) Qualifiers: Hypertension type: essential hypertension Is this a current diagnosis for this admission?: Yes Plan: Continue current regimen (4) CKD (chronic kidney disease), stage III Is this a current diagnosis for this admission?: Yes Plan: We will avoid nephrotoxic agents. (5) Diabetes mellitus type II, controlled, with no complications Is this a current diagnosis for this admission?: Yes Plan: Continue current regimen (6) Hyperkalemia Is this a current diagnosis for this admission?: Yes Plan: Resolved
[2018-05-17] MEDS: VANCOMYCIN HCL 1,000 MG in DEXTROSE 5%-WATER 250 ML IV SCH ×2 (12:14→21:27)
--- NOTE | 2018-05-17 14:17 | Progress Note ---
Provider Note Provider Note: ID Consult Note- I was asked to review the patient's chart by the Pharmacy Service. I reviewed the patient's chart, including the operative note, progress notes, and microbiology data. The patient had an infected toe, which has been amputated. The progress note indicates that there is mild residual erthema of the soft tissue. The toe culture has Group B Strep and Stenotrophomonas. Blood culture has Gram positive cocci in one set of blood cultures from May 14. It is not clear if this is a Strep or Staph. Given that patient has Group B Strep in the toe culture, I suspect that the blood culture has Group B Strep. Recommend changing antibiotics to cefazolin 2 gm IV q 8 hours. If the blood culture grows Group B Strep, then would treat for 7 days; this could be done with oral antibiotics if the patient is ready for discharge. Recommend discontinuing vancomycin and cefepime. I would use vancomycin only if the Gram positive cocci is MRSA. Please contact me if there are questions. Arya Aldana MD Pager: [phone]
[2018-05-17] MEDS: SIMVASTATIN 40 MG TABLET PO SCH (21:27)
[2018-05-18] MEDS: TRAMADOL HCL 50 MG TABLET PO PRN ×4 (03:45→20:50)
[2018-05-18 05:12] LABS: ABSOLUTE BASOPHILS # (AUTO) 0.1 10^3/uL (0.0-0.2); ABSOLUTE EOSINOPHILS # (AUTO) 0.4 10^3/uL (0.0-0.6); ABSOLUTE LYMPHOCYTES (AUTO) 1.3 10^3/uL (0.5-4.7); ABSOLUTE MONOCYTES (AUTO) 1.1 10^3/uL (0.1-1.4); ABSOLUTE NEUT (AUTO) 5.3 10^3/uL (1.7-8.2); BASOPHILS % (AUTO) 0.7 % (0-2); EOSINOPHILS % (AUTO) 4.6 % (0-6); HEMATOCRIT 37.1 % (37.9-51.0); HEMOGLOBIN 12.7 g/dL (13.5-17.0); LYMPHOCYTES % (AUTO) 16.5 % (13-45); MEAN CORPUSCULAR HEMOGLOBIN 31.7 pg (27.0-33.4); MEAN CORPUSCULAR HGB CONC 34.2 g/dL (32.0-36.0); MEAN CORPUSCULAR VOLUME 93 fl (80-97); MONOCYTES % (AUTO) 13.4 % (3-13); PLATELET COUNT 202 10^3/uL (150-450); RED CELL DISTRIBUTION WIDTH 13.3 % (11.5-14.0); SEGMENTED NEUTROPHILS % (AUTO) 64.8 % (42-78); TOTAL CELLS COUNTED % (AUTO) 100 %; WHITE BLOOD COUNT 8.1 10^3/uL (4.0-10.5)
[2018-05-18 05:30] LABS: ANION GAP 11 (5-19); BLOOD UREA NITROGEN 26 mg/dL (7-20); CALCIUM 8.8 mg/dL (8.4-10.2); CARBON DIOXIDE 27 mmol/L (22-30); CHLORIDE 103 mmol/L (98-107); GLUCOSE 215 mg/dL (75-110); POTASSIUM 5.3 mmol/L (3.6-5.0); SODIUM 141.4 mmol/L (137-145)
[2018-05-18] MEDS: INSULIN LISPRO 100 UNIT/ML 3 ML VIAL SUBCUT PRN ×2 (08:25→22:34)
[2018-05-18 10:25] LABS: VANCOMYCIN,TROUGH 11.8 ug/mL (5.0-20.0)
[2018-05-18] MEDS: CEFEPIME 1 GM/D5W RTU 1 GM/50 ML RTUPB IV SCH ×2 (10:44→22:34)
[2018-05-18] MEDS: DOCUSATE SODIUM 100 MG CAPSULE PO SCH ×2 (10:45→17:01)
[2018-05-18] MEDS: CLONAZEPAM 1 MG TABLET PO SCH (10:45)
[2018-05-18] MEDS: SERTRALINE HCL 50 MG TABLET PO SCH (10:45)
[2018-05-18] MEDS: METOPROLOL SUCCINATE 50 MG TAB.SR.24H PO SCH (10:45)
[2018-05-18] MEDS: CLONIDINE HCL 0.1 MG TABLET PO SCH (10:46)
--- NOTE | 2018-05-18 11:11 | PDOC PROGRESS REPORT ---
Subjective Progress Note for:: 05/18/18 Subjective:: comfortable Reason For Visit: DIABETIC TOE CELLULITIS Physical Exam Vital Signs: Temp Pulse Resp BP Pulse Ox 97.7 F 78 19 165/82 H 94 05/18/18 07:59 05/18/18 07:59 05/18/18 07:59 05/18/18 07:59 05/18/18 07:59 Intake & Output 05/17/18 05/18/18 05/19/18 06:59 06:59 06:59 Intake Total 1390 1110 Output Total 700 Balance 1390 410 Weight 120.9 kg Musculoskeletal exam: PRESENT: other - Left foot= WoundVac in place Results Laboratory Results: 05/18/18 04:50 05/18/18 09:53 05/18/18 05/18/18 05/18/18 04:50 04:50 09:53 WBC 8.1 RBC 4.00 L Hgb 12.7 L Hct 37.1 L MCV 93 MCH 31.7 MCHC 34.2 RDW 13.3 Plt Count 202 Seg Neutrophils % 64.8 Lymphocytes % 16.5 Monocytes % 13.4 H Eosinophils % 4.6 Basophils % 0.7 Absolute Neutrophils 5.3 Absolute Lymphocytes 1.3 Absolute Monocytes 1.1 Absolute Eosinophils 0.4 Absolute Basophils 0.1 Sodium 141.4 Potassium 5.3 H Chloride 103 Carbon Dioxide 27 Anion Gap 11 BUN 26 H Creatinine 1.44 H 1.31 H Est GFR ( Amer) > 60 > 60 Est GFR (Non-Af Amer) 49 L 55 L Glucose 215 H Calcium 8.8 Impressions: Foot X-Ray 05/14/18 18:45 IMPRESSION: CHRONIC FINDINGS ABOVE. NO EVIDENCE OF FOCAL BONY DESTRUCTION. Assessment & Plan - Diagnosis (1) Diabetic foot infection Is this a current diagnosis for this admission?: Yes - Plan Summary Plan Summary: A/ POD # 3 after left toe amoputaton Cx significant for Maltophilia sensitive to current abx P/ Next week, delayed primary closure of wound
--- NOTE | 2018-05-18 12:30 | PDOC PROGRESS REPORT ---
Subjective Progress Note for:: 05/18/18 Subjective:: I seen and examined the patient while he is sitting on recliner. His postop day history. The operation sites clean the erythema around the pressure site is improving. Patient does not have any new complaints. His wound culture grew group B beta hemolytic Streptococcus. Reason For Visit: DIABETIC TOE CELLULITIS Physical Exam Vital Signs: Temp Pulse Resp BP Pulse Ox 97.4 F 81 19 177/82 H 92 05/18/18 11:20 05/18/18 11:20 05/18/18 11:20 05/18/18 11:20 05/18/18 11:20 Intake & Output 05/17/18 05/18/18 05/19/18 06:59 06:59 06:59 Intake Total 1390 1110 Output Total 700 Balance 1390 410 Weight 120.9 kg General appearance: PRESENT: no acute distress Neck exam: ABSENT: carotid bruit, JVD, lymphadenopathy, thyromegaly Respiratory exam: PRESENT: clear to auscultation pee. ABSENT: rales, rhonchi, wheezes Cardiovascular exam: PRESENT: RRR. ABSENT: diastolic murmur, rubs, systolic murmur Extremities exam: PRESENT: other - His left second toe amputated and wound VAC is in situ. Surgical wound looks clean. Results Laboratory Results: 05/18/18 04:50 05/18/18 09:53 05/18/18 05/18/18 05/18/18 04:50 04:50 09:53 WBC 8.1 RBC 4.00 L Hgb 12.7 L Hct 37.1 L MCV 93 MCH 31.7 MCHC 34.2 RDW 13.3 Plt Count 202 Seg Neutrophils % 64.8 Lymphocytes % 16.5 Monocytes % 13.4 H Eosinophils % 4.6 Basophils % 0.7 Absolute Neutrophils 5.3 Absolute Lymphocytes 1.3 Absolute Monocytes 1.1 Absolute Eosinophils 0.4 Absolute Basophils 0.1 Sodium 141.4 Potassium 5.3 H Chloride 103 Carbon Dioxide 27 Anion Gap 11 BUN 26 H Creatinine 1.44 H 1.31 H Est GFR ( Amer) > 60 > 60 Est GFR (Non-Af Amer) 49 L 55 L Glucose 215 H Calcium 8.8 Impressions: Foot X-Ray 05/14/18 18:45 IMPRESSION: CHRONIC FINDINGS ABOVE. NO EVIDENCE OF FOCAL BONY DESTRUCTION. Assessment & Plan - Diagnosis (1) Diabetic foot infection Is this a current diagnosis for this admission?: Yes Plan: Continue cefepime (2) Constipation Is this a current diagnosis for this admission?: Yes Plan: Resolved (3) HTN (hypertension) Qualifiers: Hypertension type: essential hypertension Is this a current diagnosis for this admission?: Yes Plan: Continue current regimen (4) CKD (chronic kidney disease), stage III Is this a current diagnosis for this admission?: Yes Plan: We will avoid nephrotoxic agents. (5) Diabetes mellitus type II, controlled, with no complications Is this a current diagnosis for this admission?: Yes Plan: Continue current regimen (6) Hyperkalemia Is this a current diagnosis for this admission?: Yes Plan: Resolved
[2018-05-18] MEDS: SIMVASTATIN 40 MG TABLET PO SCH (22:34)
[2018-05-19] MEDS: TRAMADOL HCL 50 MG TABLET PO PRN ×5 (01:25→21:16)
[2018-05-19] MEDS ORDERED: DEXTROSE 40% GEL 15 GM TUBE PO PRN ×2 (06:51)
[2018-05-19] MEDS ORDERED: DEXTROSE 50%-WATER 25 GM/50 ML DISP.SYRIN IV PRN ×2 (06:51)
[2018-05-19] MEDS ORDERED: GLUCAGON,HUMAN RECOMB 1 MG INJ SUBCUT PRN (06:51)
[2018-05-19] MEDS: CEFEPIME 1 GM/D5W RTU 1 GM/50 ML RTUPB IV SCH ×2 (10:31→21:16)
[2018-05-19] MEDS: CLONIDINE HCL 0.1 MG TABLET PO SCH (10:31)
[2018-05-19] MEDS: DOCUSATE SODIUM 100 MG CAPSULE PO SCH ×2 (10:32→18:08)
[2018-05-19] MEDS: CLONAZEPAM 1 MG TABLET PO SCH (10:33)
[2018-05-19] MEDS: METOPROLOL SUCCINATE 50 MG TAB.SR.24H PO SCH (10:33)
[2018-05-19] MEDS: SERTRALINE HCL 50 MG TABLET PO SCH (10:38)
[2018-05-19] MEDS ORDERED: HYDRALAZINE HCL 50 MG TABLET PO ONE (11:30)
--- NOTE | 2018-05-19 15:21 | PDOC PROGRESS REPORT ---
Subjective Subjective:: No significant change overnight. The wound VAC is removed removed. Possible secondary wound closure. Reason For Visit: DIABETIC TOE CELLULITIS Physical Exam Vital Signs: Temp Pulse Resp BP Pulse Ox 97.3 F 78 16 152/72 H 91 L 05/19/18 11:15 05/19/18 11:15 05/19/18 11:15 05/19/18 11:15 05/19/18 11:15 Intake & Output 05/18/18 05/19/18 05/20/18 06:59 06:59 06:59 Intake Total 1110 1753 390 Output Total 700 Balance 410 1753 390 Weight 121 kg Results Laboratory Results: 05/18/18 04:50 05/18/18 09:53 Impressions: Foot X-Ray 05/14/18 18:45 IMPRESSION: CHRONIC FINDINGS ABOVE. NO EVIDENCE OF FOCAL BONY DESTRUCTION. Assessment & Plan - Diagnosis (1) Diabetic foot infection Is this a current diagnosis for this admission?: Yes Plan: Continue cefepime (2) Constipation Is this a current diagnosis for this admission?: Yes Plan: Resolved (3) HTN (hypertension) Qualifiers: Hypertension type: essential hypertension Is this a current diagnosis for this admission?: Yes Plan: Continue current regimen (4) CKD (chronic kidney disease), stage III Is this a current diagnosis for this admission?: Yes Plan: We will avoid nephrotoxic agents. (5) Diabetes mellitus type II, controlled, with no complications Is this a current diagnosis for this admission?: Yes Plan: Continue current regimen (6) Hyperkalemia Is this a current diagnosis for this admission?: Yes Plan: Has resolved
[2018-05-19] MEDS ORDERED: SODIUM POLYSTYRENE SULFONATE 15 GM/60 ML PO ONE (16:00)
[2018-05-19] MEDS: INSULIN LISPRO 100 UNIT/ML 3 ML VIAL SUBCUT PRN ×2 (16:14→22:11)
--- NOTE | 2018-05-19 16:54 | PDOC PROGRESS REPORT ---
Subjective Progress Note for:: 05/19/18 Subjective:: no pains Reason For Visit: DIABETIC TOE CELLULITIS Physical Exam Vital Signs: Temp Pulse Resp BP Pulse Ox 97.6 F 77 16 162/77 H 93 05/19/18 15:35 05/19/18 15:35 05/19/18 15:35 05/19/18 15:35 05/19/18 15:35 Intake & Output 05/18/18 05/19/18 05/20/18 06:59 06:59 06:59 Intake Total 1110 1753 390 Output Total 700 Balance 410 1753 390 Weight 121 kg Exam: Wound examined. No granulation tissue yet but dry. Small gauze left inside the wound was removed and VAC resumed Results Laboratory Results: 05/18/18 04:50 05/18/18 09:53 Impressions: Foot X-Ray 05/14/18 18:45 IMPRESSION: CHRONIC FINDINGS ABOVE. NO EVIDENCE OF FOCAL BONY DESTRUCTION. Assessment & Plan - Time Time Spent with patient: 15-24 minutes - Plan Summary Plan Summary: Wound not ready to be closed secondarily. Resume wound VAC and re-evaluate in 48-72 hrs for closure vs continued wound VAC and [facility]
[2018-05-19] MEDS: SIMVASTATIN 40 MG TABLET PO SCH (21:16)
[2018-05-19] MEDS: HYDRALAZINE HCL 50 MG TABLET PO SCH (21:16)
[2018-05-20] MEDS: TRAMADOL HCL 50 MG TABLET PO PRN ×3 (03:41→20:31)
[2018-05-20 05:53] LABS: ABSOLUTE BASOPHILS # (AUTO) 0.1 10^3/uL (0.0-0.2); ABSOLUTE EOSINOPHILS # (AUTO) 0.5 10^3/uL (0.0-0.6); ABSOLUTE LYMPHOCYTES (AUTO) 1.8 10^3/uL (0.5-4.7); ABSOLUTE MONOCYTES (AUTO) 1.1 10^3/uL (0.1-1.4); ABSOLUTE NEUT (AUTO) 8.2 10^3/uL (1.7-8.2); EOSINOPHILS % (AUTO) 4.5 % (0-6); HEMOGLOBIN 13.8 g/dL (13.5-17.0); LYMPHOCYTES % (AUTO) 15.5 % (13-45); MEAN CORPUSCULAR HEMOGLOBIN 31.4 pg (27.0-33.4); MEAN CORPUSCULAR HGB CONC 33.7 g/dL (32.0-36.0); MEAN CORPUSCULAR VOLUME 93 fl (80-97); MONOCYTES % (AUTO) 9.5 % (3-13); PLATELET COUNT 311 10^3/uL (150-450); RED BLOOD COUNT 4.39 10^6/uL (4.35-5.55); RED CELL DISTRIBUTION WIDTH 13.7 % (11.5-14.0); SEGMENTED NEUTROPHILS % (AUTO) 69.5 % (42-78); TOTAL CELLS COUNTED % (AUTO) 100 %; WHITE BLOOD COUNT 11.9 10^3/uL (4.0-10.5)
[2018-05-20 05:59] LABS: ANION GAP 17 (5-19); BLOOD UREA NITROGEN 24 mg/dL (7-20); CALCIUM 9.2 mg/dL (8.4-10.2); CARBON DIOXIDE 26 mmol/L (22-30); CHLORIDE 100 mmol/L (98-107); GLUCOSE 281 mg/dL (75-110); POTASSIUM 4.2 mmol/L (3.6-5.0); SODIUM 142.5 mmol/L (137-145)
[2018-05-20] MEDS: HYDRALAZINE HCL 50 MG TABLET PO SCH ×3 (06:22→21:07)
[2018-05-20] MEDS: CLONAZEPAM 1 MG TABLET PO SCH (09:20)
[2018-05-20] MEDS: CLONIDINE HCL 0.1 MG TABLET PO SCH (09:20)
[2018-05-20] MEDS: DOCUSATE SODIUM 100 MG CAPSULE PO SCH ×2 (09:20→18:01)
[2018-05-20] MEDS: CEFEPIME 1 GM/D5W RTU 1 GM/50 ML RTUPB IV SCH ×2 (09:20→21:07)
[2018-05-20] MEDS: SERTRALINE HCL 50 MG TABLET PO SCH (09:21)
[2018-05-20] MEDS: METOPROLOL SUCCINATE 50 MG TAB.SR.24H PO SCH (09:21)
[2018-05-20] MEDS: INSULIN LISPRO 100 UNIT/ML 3 ML VIAL SUBCUT PRN ×2 (09:21→11:24)
--- NOTE | 2018-05-20 12:21 | PDOC PROGRESS REPORT ---
Subjective Subjective:: Patient has no complaints; is restless and wants to leave the hospital. Reason For Visit: DIABETIC TOE CELLULITIS Physical Exam Vital Signs: Temp Pulse Resp BP Pulse Ox 98.1 F 78 16 182/83 H 93 05/20/18 00:00 05/20/18 00:00 05/20/18 00:00 05/20/18 00:00 05/20/18 00:00 Intake & Output 05/19/18 05/20/18 05/21/18 06:59 06:59 06:59 Intake Total 1753 1020 Balance 1753 1020 Weight 121 kg 121.5 kg General appearance: PRESENT: no acute distress Extremities exam: PRESENT: other - Sitting in chair, left foot examined. VAC in position. Erythema and edema markedly improved on the distal forefoot. Still some edema around the midfoot. Results Laboratory Results: 05/20/18 04:50 05/20/18 04:50 05/20/18 05/20/18 04:50 04:50 WBC 11.9 H RBC 4.39 Hgb 13.8 Hct 41.0 MCV 93 MCH 31.4 MCHC 33.7 RDW 13.7 Plt Count 311 Seg Neutrophils % 69.5 Lymphocytes % 15.5 Monocytes % 9.5 Eosinophils % 4.5 Basophils % 1.0 Absolute Neutrophils 8.2 Absolute Lymphocytes 1.8 Absolute Monocytes 1.1 Absolute Eosinophils 0.5 Absolute Basophils 0.1 Sodium 142.5 Potassium 4.2 Chloride 100 Carbon Dioxide 26 Anion Gap 17 BUN 24 H Creatinine 1.27 H Est GFR ( Amer) > 60 Est GFR (Non-Af Amer) 57 L Glucose 281 H Calcium 9.2 Impressions: Foot X-Ray 05/14/18 18:45 IMPRESSION: CHRONIC FINDINGS ABOVE. NO EVIDENCE OF FOCAL BONY DESTRUCTION. Assessment & Plan - Diagnosis (1) Diabetic foot infection Is this a current diagnosis for this admission?: Yes Plan: Deep soft tissue and probable osteomyelitis of the left toe, now 5 days status post left ray amputation, with wound left open, infection cleaning up with intravenous antibiotics and wound VAC therapy. Her graft Recommendations: 1. The leg elevation and intravenous antibiotics for polymicrobial maltephilia and streptococcal infection 2. I believe this wound will need to heal by secondary intention rather than a delayed primary closure approach. This was discussed with the patient. 3. Will ascertain whether intravenous antibiotics are indicated long-term.
--- NOTE | 2018-05-20 15:07 | PDOC PROGRESS REPORT ---
Subjective Progress Note for:: 05/20/18 Subjective:: I seen today patient while he is sitting on recliner. No new complaint is. For me he was seen by Dr. Joseph who planned to close the wound after 48 hours. No new complaints Reason For Visit: DIABETIC TOE CELLULITIS Physical Exam Vital Signs: Temp Pulse Resp BP Pulse Ox 97.9 F 78 18 160/76 H 98 05/20/18 11:34 05/20/18 11:34 05/20/18 11:34 05/20/18 11:34 05/20/18 11:34 Intake & Output 05/19/18 05/20/18 05/21/18 06:59 06:59 06:59 Intake Total 1753 1020 Balance 1753 1020 Weight 121 kg 121.5 kg General appearance: PRESENT: no acute distress Head exam: PRESENT: atraumatic Eye exam: PRESENT: conjunctiva pink Neck exam: ABSENT: carotid bruit, JVD, lymphadenopathy, thyromegaly Respiratory exam: PRESENT: clear to auscultation pee. ABSENT: rales, rhonchi, wheezes Cardiovascular exam: PRESENT: RRR. ABSENT: diastolic murmur, rubs, systolic murmur GI/Abdominal exam: PRESENT: normal bowel sounds, soft. ABSENT: distended, guarding, mass, organolmegaly, rebound, tenderness Neurological exam: PRESENT: alert Psychiatric exam: PRESENT: normal mood Results Laboratory Results: 05/20/18 04:50 05/20/18 04:50 05/20/18 05/20/18 04:50 04:50 WBC 11.9 H RBC 4.39 Hgb 13.8 Hct 41.0 MCV 93 MCH 31.4 MCHC 33.7 RDW 13.7 Plt Count 311 Seg Neutrophils % 69.5 Lymphocytes % 15.5 Monocytes % 9.5 Eosinophils % 4.5 Basophils % 1.0 Absolute Neutrophils 8.2 Absolute Lymphocytes 1.8 Absolute Monocytes 1.1 Absolute Eosinophils 0.5 Absolute Basophils 0.1 Sodium 142.5 Potassium 4.2 Chloride 100 Carbon Dioxide 26 Anion Gap 17 BUN 24 H Creatinine 1.27 H Est GFR ( Amer) > 60 Est GFR (Non-Af Amer) 57 L Glucose 281 H Calcium 9.2 Impressions: Foot X-Ray 05/14/18 18:45 IMPRESSION: CHRONIC FINDINGS ABOVE. NO EVIDENCE OF FOCAL BONY DESTRUCTION. Assessment & Plan - Diagnosis (1) Diabetic foot infection Is this a current diagnosis for this admission?: Yes Plan: Continue the same regimen (2) Constipation Is this a current diagnosis for this admission?: Yes Plan: Resolved (3) HTN (hypertension) Qualifiers: Hypertension type: essential hypertension Is this a current diagnosis for this admission?: Yes Plan: Continue current regimen (4) CKD (chronic kidney disease), stage III Is this a current diagnosis for this admission?: Yes Plan: His kidney function is improving at admission his creatinine was 1.642 date is 1.7 and his hyperkalemia has resolved. (5) Diabetes mellitus type II, controlled, with no complications Is this a current diagnosis for this admission?: Yes (6) Hyperkalemia Is this a current diagnosis for this admission?: Yes Plan: Resolved. His potassium is 4.2 today - Time Time Spent with patient: 25-34 minutes
[2018-05-20] MEDS ORDERED: INSULIN REGULAR HUMAN SQ SCH (20:00)
[2018-05-20] MEDS: HUMULIN R U INSULIN SUBCUT SCH (21:07)
[2018-05-20] MEDS: SIMVASTATIN 40 MG TABLET PO SCH (21:07)
[2018-05-21] MEDS: TRAMADOL HCL 50 MG TABLET PO PRN ×6 (00:22→23:55)
[2018-05-21] MEDS: HYDRALAZINE HCL 50 MG TABLET PO SCH ×3 (04:31→21:05)
[2018-05-21] MEDS ORDERED: INSULIN REGULAR HUMAN 100 UNIT SQ SCH (08:00)
[2018-05-21] MEDS: HUMULIN R U-500 KWIKPEN SUBCUT SCH (08:45)
[2018-05-21] MEDS: CEFEPIME 1 GM/D5W RTU 1 GM/50 ML RTUPB IV SCH ×2 (08:53→21:49)
[2018-05-21] MEDS: CLONIDINE HCL 0.1 MG TABLET PO SCH (08:54)
[2018-05-21] MEDS: METOPROLOL SUCCINATE 50 MG TAB.SR.24H PO SCH (08:55)
[2018-05-21] MEDS: SERTRALINE HCL 50 MG TABLET PO SCH (08:56)
[2018-05-21] MEDS: CLONAZEPAM 1 MG TABLET PO SCH (08:58)
[2018-05-21] MEDS: VICTOZA SUBCUT SCH (09:02)
[2018-05-21] MEDS: DOCUSATE SODIUM 100 MG CAPSULE PO SCH ×2 (09:05→17:33)
[2018-05-21] MEDS ORDERED: (PENDING PHARMACY ID) (Liraglutide [Victoza 2-Pak] 1.8 MG) SQ SCH (10:00)
--- NOTE | 2018-05-21 15:55 | PDOC PROGRESS REPORT ---
Subjective Progress Note for:: 05/21/18 Subjective:: No significant change overnight. Dr. Cannon plan to discharge him tomorrow Reason For Visit: DIABETIC TOE CELLULITIS Physical Exam Vital Signs: Temp Pulse Resp BP Pulse Ox 98.3 F 78 18 147/77 H 94 05/21/18 11:28 05/21/18 11:28 05/21/18 11:28 05/21/18 11:28 05/21/18 11:28 Intake & Output 05/20/18 05/21/18 05/22/18 06:59 06:59 06:59 Intake Total 1020 1122 Balance 1020 1122 Weight 121.5 kg 121.5 kg General appearance: PRESENT: no acute distress Head exam: PRESENT: atraumatic Mouth exam: PRESENT: moist Neck exam: ABSENT: carotid bruit, JVD, lymphadenopathy, thyromegaly Respiratory exam: PRESENT: clear to auscultation pee. ABSENT: rales, rhonchi, wheezes Cardiovascular exam: PRESENT: RRR. ABSENT: diastolic murmur, rubs, systolic murmur GI/Abdominal exam: PRESENT: normal bowel sounds, soft. ABSENT: distended, guarding, mass, organolmegaly, rebound, tenderness Neurological exam: PRESENT: alert, awake, oriented to time, oriented to situation Psychiatric exam: PRESENT: normal mood Results Laboratory Results: 05/20/18 04:50 05/20/18 04:50 Impressions: Foot X-Ray 05/14/18 18:45 IMPRESSION: CHRONIC FINDINGS ABOVE. NO EVIDENCE OF FOCAL BONY DESTRUCTION. Assessment & Plan - Diagnosis (1) Diabetic foot infection Is this a current diagnosis for this admission?: Yes Plan: The wound is granulating but is not ready for secondary closure (2) Constipation Is this a current diagnosis for this admission?: Yes Plan: Resolved (3) HTN (hypertension) Qualifiers: Hypertension type: essential hypertension Is this a current diagnosis for this admission?: Yes Plan: Continue current regimen (4) CKD (chronic kidney disease), stage III Is this a current diagnosis for this admission?: Yes Plan: His kidney function is improving at admission his creatinine was 1.642 date is 1.7 and his hyperkalemia has resolved. (5) Diabetes mellitus type II, controlled, with no complications Is this a current diagnosis for this admission?: Yes Plan: Continue current regimen (6) Hyperkalemia Is this a current diagnosis for this admission?: Yes Plan: Resolved. His potassium is 4.2 today
--- NOTE | 2018-05-21 15:57 | RADIOLOGY REPORT (SQ) ---
EXAM DESCRIPTION: PICC INSERTION; FLUORO/CV PLACEMENT; U/S GUIDE FOR VASCULAR ACCESS COMPLETED DATE/TIME: 05/21/2018 3:44 pm REASON FOR STUDY: FOR HOME IV ABX ; IV ABX; IV ACCESS COMPARISON: Two-view chest 08/30/2016 Left foot films 05/14/2018 FLUOROSCOPY TIME: 15 seconds 1 ultrasound and 1 digital fluoro images saved to PACS. TECHNIQUE: Fluoroscopic and ultrasound guided PICC placement. LIMITATIONS: None. PROCEDURE: After written consent and assessment were obtained, the patient was brought into the fluo roscopy room and place supine on the table. Ultrasound evaluation of potential access sites were perf ormed. After successfully identifying a patent right basilic vein, the right arm was prepped and drap ed in a sterile fashion along with the ultrasound probe. The entry site was anesthetized with 1% lido laura. A 21 gauge 7 cm needle was advanced through the skin and into the basilic vein under live ultr asound guidance. An ultrasound image was saved to PACS confirming access site. A .018 guide wire wa s then inserted through the needle and into the venous system. The needle was the removed and an 11 b lade scalpel was used to make a 1cm skin incision. A 5 fr peel-away sheath was advanced over the wir e and into the venous system. A measurement was then made using the existing wire and live fluoroscop ic guidance. The wire was then removed and the trimmed. The PICC was advanced through the peel-away s tanna and into the venous system. The peel-away sheath was removed and the catheter was adhered to th e patients arm with a stat lock. The catheter was then aspirated and flushed and a sterile bandage wa s placed over the access site. A fluoroscopic spot image was saved to PACS confirming the catheter t ip within the superior vena cava. IMPRESSION: SUCCESSFUL PLACEMENT OF A 5 FR DUAL LUMEN 36 CM PICC IN THE RIGHT BASILIC VEIN. COMMENT: Patient medication list reviewed: Yes- Quality ID# 130:Eligible professional attests to doc umenting in the medical record they obtained, updated, or reviewed the patient's current medications. . Quality ID 145: Final reports for procedures using fluoroscopy that document radiation exposure omkar hector, or exposure time and number of fluorographic images (if radiation exposure indices are not avail able) Quality ID #76: The patient was prepped and draped using maximum sterile barrier technique including cap, mask, sterile gown, sterile gloves, a large sterile sheet, hand hygiene, and 2% Chlorhexidine fo r cutaneous antisepsis. When ultrasound is used, sterile ultrasound techniques are followed requiring sterile gel and sterile probes. TECHNICAL DOCUMENTATION: JOB ID: [id number] [employer]- All Rights Reserved rev-04/12 Reading location - IP/workstation name: [facility]
--- NOTE | 2018-05-21 16:06 | PDOC PROGRESS REPORT ---
Subjective Progress Note for:: 05/21/18 Subjective:: less pains left 2nd toe amp site with Wound Vac. Reason For Visit: DIABETIC TOE CELLULITIS Physical Exam Vital Signs: Temp Pulse Resp BP Pulse Ox 98.3 F 78 18 147/77 H 94 05/21/18 11:28 05/21/18 11:28 05/21/18 11:28 05/21/18 11:28 05/21/18 11:28 Intake & Output 05/20/18 05/21/18 05/22/18 06:59 06:59 06:59 Intake Total 1020 1122 Balance 1020 1122 Weight 121.5 kg 121.5 kg Exam: Wound Vac in place Results Laboratory Results: 05/20/18 04:50 05/20/18 04:50 Impressions: Foot X-Ray 05/14/18 18:45 IMPRESSION: CHRONIC FINDINGS ABOVE. NO EVIDENCE OF FOCAL BONY DESTRUCTION. Guidance Fluoroscopy 05/21/18 00:00 IMPRESSION: SUCCESSFUL PLACEMENT OF A 5 FR DUAL LUMEN 36 CM PICC IN THE RIGHT BASILIC VEIN. Interventional Vascular Procedure 05/21/18 00:00 IMPRESSION: SUCCESSFUL PLACEMENT OF A 5 FR DUAL LUMEN 36 CM PICC IN THE RIGHT BASILIC VEIN. PICC Line Insertion 05/21/18 00:00 IMPRESSION: SUCCESSFUL PLACEMENT OF A 5 FR DUAL LUMEN 36 CM PICC IN THE RIGHT BASILIC VEIN. Assessment & Plan - Time Time Spent with patient: 15-24 minutes - Plan Summary Plan Summary: Successful Picc line placement by IR Dr Gillespie Continue wound vac at home and IV antibiotics F/U at [facility].
[2018-05-21] MEDS: SIMVASTATIN 40 MG TABLET PO SCH (21:05)
[2018-05-21] MEDS: HUMULIN R U INSULIN SUBCUT SCH (21:05)
[2018-05-22] MEDS ORDERED: NORMAL SALINE 10 ML SDV (AFTER EACH USE) IV PRN (03:34)
[2018-05-22] MEDS: TRAMADOL HCL 50 MG TABLET PO PRN (05:21)
[2018-05-22] MEDS: HYDRALAZINE HCL 50 MG TABLET PO SCH ×2 (05:22→14:24)
[2018-05-22] MEDS: HUMULIN R U-500 KWIKPEN SUBCUT SCH (06:51)
[2018-05-22] MEDS: VICTOZA SUBCUT SCH (06:52)
[2018-05-22] MEDS: CLONIDINE HCL 0.1 MG TABLET PO SCH (09:11)
[2018-05-22] MEDS: METOPROLOL SUCCINATE 50 MG TAB.SR.24H PO SCH (09:11)
[2018-05-22] MEDS: SERTRALINE HCL 50 MG TABLET PO SCH (09:12)
[2018-05-22] MEDS: DOCUSATE SODIUM 100 MG CAPSULE PO SCH ×2 (09:12→17:31)
[2018-05-22] MEDS ORDERED: NORMAL SALINE 10 ML SDV (SCHEDULED) IV SCH (10:00)
--- NOTE | 2018-05-22 11:25 | PDOC DISCHARGE SUMMARY ---
General - Admit/Disc Date/PCP Admission Date/Primary Care Provider: 05/14/18 21:42 Discharge Date: 05/22/18 - Discharge Diagnosis (1) Diabetic foot infection Is this a current diagnosis for this admission?: Yes (2) Constipation Is this a current diagnosis for this admission?: Yes (3) HTN (hypertension) Is this a current diagnosis for this admission?: Yes (4) CKD (chronic kidney disease), stage III Is this a current diagnosis for this admission?: Yes (5) Diabetes mellitus type II, controlled, with no complications Is this a current diagnosis for this admission?: Yes (6) Hyperkalemia Is this a current diagnosis for this admission?: Yes - Additional Information Resuscitation Status: Do Not Resuscitate Discharge Diet: Diabetic Discharge Activity: Activity As Tolerated Prescriptions: Cefepime 2 gm/D5w RTU [Maxipime RTU 2 gm-D5w 50 ml Premix Bag] 2 gm IV Q12 7 Days #20 rtupb Home Medications: Simvastatin 40 mg PO QHS 09/29/14 Metoprolol Succinate [Toprol Xl] 100 mg PO DAILY 08/21/16 Clonazepam 0.5 mg PO DAILY 05/14/18 Acetaminophen [Tylenol Extra Strength 500 mg Tablet] 1,000 mg PO Q8HP PRN Cholecalciferol (Vitamin D3) [Vitamin D3] 1,000 unit PO BID 05/15/18 Hydralazine HCl [Apresoline 50 mg Tablet] 50 mg PO TID 05/15/18 Insulin Regular, Human [Humulin R U-500 Kwikpen] 90 unit SQ QPM 05/15/18 Insulin Regular, Human [Humulin R U-500 Kwikpen] 100 unit SQ QAM 05/15/18 Liraglutide [Victoza 2-Patricio] 1.8 mg SQ DAILY 05/15/18 Sertraline HCl [Zoloft] 100 mg PO DAILY 05/15/18 Cefepime 2 gm/D5w RTU [Maxipime RTU 2 gm-D5w 50 ml Premix Bag] 2 gm IV Q12 7 Days #20 rtupb 05/22/18 History of Present Illness History of Present Illness: GABE MATHEWS is a 62 year old male with history of diabetes, dyslipidemia and obesity presents with swelling erythema and pain to his left second toe prompting evaluation emergency room. He is found to have leukocytosis and a markedly swollen, ulcerated toe with purulent drainage. He denies fever chills nausea vomiting he denies recent antibiotic use or trauma. Denies previous episode. In the emergency room he is started on empiric antibiotics of vancomycin and cefepime and referred to the hospitalist for admission. Hospital Course Hospital Course: Mr. Mathews is a very pleasant 62 years old male patient admitted for left foot diabetic ulcer and cellulitis involving the left second toe and patient is status post left second toe amputation. X-ray of the left foot reported as no evidence of bony destruction. His wound culture grew beta- hemolytic Streptococcus for which he has been on cefepime for the last 7 days. Secondary closure of the wound is not visible at this time per Dr. Cannon who recommended to continue additional 7 days of cefepime and follow-up at this wound care. This morning I seen the patient sitting on recliner he is awake alert oriented he is not in pain or any form of distress. I will continue all his home medication and added cefepime 2 g IV twice a day for 7 days. Physical Exam Vital Signs: Temp Pulse Resp BP Pulse Ox 98.2 F 88 18 157/91 H 98 05/21/18 23:20 05/21/18 23:20 05/21/18 23:20 05/21/18 23:20 05/21/18 23:20 Intake & Output 05/21/18 05/22/18 05/23/18 06:59 06:59 06:59 Intake Total 1122 2166 Balance 1122 2166 Weight 121.5 kg 121.5 kg General appearance: PRESENT: no acute distress, well-developed, well-nourished Head exam: PRESENT: atraumatic, normocephalic Eye exam: PRESENT: conjunctiva pink, EOMI, PERRLA. ABSENT: scleral icterus Ear exam: PRESENT: normal external ear exam Mouth exam: PRESENT: moist, tongue midline Neck exam: ABSENT: carotid bruit, JVD, lymphadenopathy, thyromegaly Respiratory exam: PRESENT: clear to auscultation pee. ABSENT: rales, rhonchi, wheezes Cardiovascular exam: PRESENT: RRR. ABSENT: diastolic murmur, rubs, systolic murmur Pulses: PRESENT: normal dorsalis pedis pul Vascular exam: PRESENT: normal capillary refill GI/Abdominal exam: PRESENT: normal bowel sounds, soft. ABSENT: distended, guarding, mass, organolmegaly, rebound, tenderness Rectal exam: PRESENT: deferred Extremities exam: PRESENT: full ROM, other - Wound VAC attached to the left second toe stump.. ABSENT: calf tenderness, clubbing, pedal edema Neurological exam: PRESENT: alert, awake, oriented to person, oriented to place , oriented to time, oriented to situation, CN II-XII grossly intact. ABSENT: motor sensory deficit Psychiatric exam: PRESENT: appropriate affect, normal mood. ABSENT: homicidal ideation, suicidal ideation Skin exam: PRESENT: dry, intact, warm. ABSENT: cyanosis, rash Results Laboratory Results: 05/20/18 04:50 05/20/18 04:50 Impressions: Foot X-Ray 05/14/18 18:45 IMPRESSION: CHRONIC FINDINGS ABOVE. NO EVIDENCE OF FOCAL BONY DESTRUCTION. Guidance Fluoroscopy 05/21/18 00:00 IMPRESSION: SUCCESSFUL PLACEMENT OF A 5 FR DUAL LUMEN 36 CM PICC IN THE RIGHT BASILIC VEIN. Interventional Vascular Procedure 05/21/18 00:00 IMPRESSION: SUCCESSFUL PLACEMENT OF A 5 FR DUAL LUMEN 36 CM PICC IN THE RIGHT BASILIC VEIN. PICC Line Insertion 05/21/18 00:00 IMPRESSION: SUCCESSFUL PLACEMENT OF A 5 FR DUAL LUMEN 36 CM PICC IN THE RIGHT BASILIC VEIN. Qualifiers - * PATIENT BEING DISCHARGED WITH ANY OF THE FOLLOWING DIAGNOSIS: No
[2018-05-22] MEDS ORDERED: CEFEPIME 2 GM/D5W RTU 2 GM/50 ML RTUPB IV SCH (18:00)
[2018-05-22 19:21] VITALS: BP 157/80
--- NOTE | 2018-05-28 06:39 | PDOC PROGRESS REPORT ---
Subjective Progress Note for:: 05/15/18 Subjective:: Patient seen and examined with nurse. Patient is postop day 0, admits controlled pain, denies fever chills nausea vomiting. Tolerating p.o. Reason For Visit: DIABETIC TOE CELLULITIS Physical Exam Vital Signs: Temp Pulse Resp BP Pulse Ox 97.9 F 93 16 157/80 H 93 05/22/18 15:55 05/22/18 15:55 05/22/18 15:55 05/22/18 15:55 05/22/18 15:55 General appearance: PRESENT: no acute distress, well-developed, well-nourished Head exam: PRESENT: atraumatic, normocephalic Eye exam: PRESENT: conjunctiva pink, EOMI, PERRLA. ABSENT: scleral icterus Ear exam: PRESENT: normal external ear exam Mouth exam: PRESENT: moist, tongue midline Neck exam: ABSENT: carotid bruit, JVD, lymphadenopathy, thyromegaly Respiratory exam: PRESENT: clear to auscultation pee. ABSENT: rales, rhonchi, wheezes Cardiovascular exam: PRESENT: RRR. ABSENT: diastolic murmur, rubs, systolic murmur Pulses: PRESENT: normal dorsalis pedis pul Vascular exam: PRESENT: normal capillary refill GI/Abdominal exam: PRESENT: normal bowel sounds, soft. ABSENT: distended, guarding, mass, organolmegaly, rebound, tenderness Rectal exam: PRESENT: deferred Extremities exam: PRESENT: full ROM. ABSENT: calf tenderness, clubbing, pedal edema Neurological exam: PRESENT: alert, awake, oriented to person, oriented to place , oriented to time, oriented to situation, CN II-XII grossly intact. ABSENT: motor sensory deficit Psychiatric exam: PRESENT: appropriate affect, normal mood. ABSENT: homicidal ideation, suicidal ideation Skin exam: PRESENT: dry, intact, warm. ABSENT: cyanosis, rash Results Laboratory Results: 05/20/18 04:50 05/20/18 04:50 Impressions: Foot X-Ray 05/14/18 18:45 IMPRESSION: CHRONIC FINDINGS ABOVE. NO EVIDENCE OF FOCAL BONY DESTRUCTION. Guidance Fluoroscopy 05/21/18 00:00 IMPRESSION: SUCCESSFUL PLACEMENT OF A 5 FR DUAL LUMEN 36 CM PICC IN THE RIGHT BASILIC VEIN. Interventional Vascular Procedure 05/21/18 00:00 IMPRESSION: SUCCESSFUL PLACEMENT OF A 5 FR DUAL LUMEN 36 CM PICC IN THE RIGHT BASILIC VEIN. PICC Line Insertion 05/21/18 00:00 IMPRESSION: SUCCESSFUL PLACEMENT OF A 5 FR DUAL LUMEN 36 CM PICC IN THE RIGHT BASILIC VEIN. Assessment & Plan - Diagnosis (1) Diabetic foot infection Is this a current diagnosis for this admission?: Yes Plan: Empiric antibiotics, follow-up surgery consult, blood culture, wound culture and CBC (2) HTN (hypertension) Qualifiers: Hypertension type: essential hypertension Is this a current diagnosis for this admission?: Yes Plan: JES inhibitor with as needed hydralazine (3) CKD (chronic kidney disease), stage III Is this a current diagnosis for this admission?: Yes Plan: At baseline, avoid nephrotoxic meds and doses, follow-up chemistry (4) Diabetes mellitus type II, controlled, with no complications Is this a current diagnosis for this admission?: Yes Plan: Outpatient regiment with Humalog sliding scale avoiding metformin and patient (5) Hyperkalemia Is this a current diagnosis for this admission?: Yes Plan: Secondary to chronic kidney disease and constipation, lactulose trial, follow- up chemistry (6) Constipation Is this a current diagnosis for this admission?: Yes Plan: Bowel regiment and trial lactulose - Time Time Spent with patient: Less than 15 minutes - Inpatient Certification Medical Necessity: Need Close Monitoring Due to Risk of Patient Decompensation
--- NOTE | 2018-06-22 18:14 | Progress Note ---
Provider Note Provider Note: This is an addendum to my discharge summary I dictated for Mr. Rodriguez and diabetic ulcer with gangrene is 1 of the discharge diagnoses. End of addendum.
== END 2018-05-22 18:40 | disposition home health service (06) | DRG 256 ==
LOC: ER 17:12 → EH 21:42 → 4S 23:00 → 5 05-16 07:46
PROVIDERS: ADMIT Internal Medicine; ATTEND Internal Medicine
PROC: 5A09357 Assistance with Respiratory Ventilation, Less than 24 Consecutive Hours, Continuous Positive Airway Pressure (ICD-10-PCS; 2018-05-15)
PROC: 3E0F73Z Introduction of Anti-inflammatory into Respiratory Tract, Via Natural or Artificial Opening (ICD-10-PCS; 2018-05-15)
PROC: 0Y6S0Z0 Detachment at Left 2nd Toe, Complete, Open Approach (ICD-10-PCS; principal; 2018-05-15 13:00)
PROC: 02HV33Z Insertion of Infusion Device into Superior Vena Cava, Percutaneous Approach (ICD-10-PCS; 2018-05-21)
PROC: B548ZZA Ultrasonography of Superior Vena Cava, Guidance (ICD-10-PCS; 2018-05-21)
PROC: B518ZZA Fluoroscopy of Superior Vena Cava, Guidance (ICD-10-PCS; 2018-05-21)
DX: E11.52 Type 2 diabetes mellitus with diabetic peripheral angiopathy with gangrene (principal); I96 Gangrene, not elsewhere classified; L03.032 Cellulitis of left toe; E11.22 Type 2 diabetes mellitus with diabetic chronic kidney disease; K59.00 Constipation, unspecified; Z66 Do not resuscitate; I12.9 Hypertensive chronic kidney disease with stage 1 through stage 4 chronic kidney disease, or unspecified chronic kidney disease; N18.3 Chronic kidney disease, stage 3 (moderate); E87.5 Hyperkalemia; E78.00 Pure hypercholesterolemia, unspecified; E66.9 Obesity, unspecified; Z68.36 Body mass index [BMI] 36.0-36.9, adult; M19.90 Unspecified osteoarthritis, unspecified site; B95.1 Streptococcus, group B, as the cause of diseases classified elsewhere; Z79.4 Long term (current) use of insulin; Z79.899 Other long term (current) drug therapy; Z88.6 Allergy status to analgesic agent; Z83.3 Family history of diabetes mellitus; Z84.89 Family history of other specified conditions
CPT/HCPCS: 01480; 36415; 36569; 76937; 77001; 80048; 80053; 80202; 82565; 82803; 82962; 83605; 85025; 87040; 87070; 87077; 87186; 87205; 88304; 88311; 93005; 93010; 96374; 99285; J0692; J1642; J1644; J1815; J2250; J2704; J3010; J3370; J3490; J7030; J7060

== ENCOUNTER → 2018-06-03 | Outpatient (CLI) | payer OTHER ==
--- NOTE | 2018-06-04 11:31 | XCELERA REPORT ---
[address] [address] Lower Extremity Arterial Evaluation Name: GABE MATHEWS Age: 62 yrs Gender: Male : 1955 Patient Status: Outpatient Patient Location: Study Date: 06/03/2018 03:26 PM Procedure: A color flow and duplex scan of the lower extremity arteries was performed on the left with velocity and waveform anaylsis. Reason For Study: PVD Ordering Physician: YASMEEN UGALDE Performed By: Jesús Wilkinson Measurements and Calculations Right Left WOOD BUFFER PSV 133.6 cm/sec Prox PFA PSV 71.7 cm/sec Prox SFA PSV 92.8 cm/sec Mid SFA PSV -104.3 cm/sec Dist SFA PSV -92.4 cm/sec Prox Pop A PSV 75.6 cm/sec Dist JEANINE PSV 98.7 cm/sec Dist LEAD SHAREPOINT DEVELOPER PSV 80.0 cm/sec Gennaro Pedis PSV 77.3 304.9 cm/sec Right Side Arterial Evaluation Biphasic Dorsalsi Pedis. Left Side Arterial Evaluation Normal velocity and triphasic waveforms noted from the Common Femoral artery to the Popliteal. Biphasic in the infrageniculate vessels. 20-49 % stenosis at the infrageniculate level. Ankle Brachial index was not obtainable due to non compressibility. Interpretation Summary Moderate hemodynamically significant lesions in the left lower extremity only, on duplex imaging, at rest. : YASMEEN UGALDE > Reed Ty
== END ==
LOC: SP 15:08
PROVIDERS: ATTEND Surgery
DX: I70.202 Unspecified atherosclerosis of native arteries of extremities, left leg (principal)
CPT/HCPCS: 93926

== ENCOUNTER → 2018-06-07 | Outpatient (CLI) | payer OTHER ==
[2018-06-07 11:27] LABS: ABSOLUTE BASOPHILS # (AUTO) 0.1 10^3/uL (0.0-0.2); ABSOLUTE EOSINOPHILS # (AUTO) 0.5 10^3/uL (0.0-0.6); ABSOLUTE LYMPHOCYTES (AUTO) 1.2 10^3/uL (0.5-4.7); ABSOLUTE MONOCYTES (AUTO) 1.1 10^3/uL (0.1-1.4); ABSOLUTE NEUT (AUTO) 6.2 10^3/uL (1.7-8.2); BASOPHILS % (AUTO) 0.9 % (0-2); EOSINOPHILS % (AUTO) 5.3 % (0-6); HEMATOCRIT 41.1 % (37.9-51.0); HEMOGLOBIN 13.9 g/dL (13.5-17.0); LYMPHOCYTES % (AUTO) 13.7 % (13-45); MEAN CORPUSCULAR HEMOGLOBIN 31.6 pg (27.0-33.4); MEAN CORPUSCULAR HGB CONC 33.8 g/dL (32.0-36.0); MEAN CORPUSCULAR VOLUME 94 fl (80-97); PLATELET COUNT 201 10^3/uL (150-450); RED BLOOD COUNT 4.39 10^6/uL (4.35-5.55); RED CELL DISTRIBUTION WIDTH 13.9 % (11.5-14.0); SEGMENTED NEUTROPHILS % (AUTO) 68.1 % (42-78); TOTAL CELLS COUNTED % (AUTO) 100 %; WHITE BLOOD COUNT 9.1 10^3/uL (4.0-10.5)
[2018-06-07 11:59] LABS: ALANINE AMINOTRANSFERASE 29 U/L (21-72); ALBUMIN 4.3 g/dL (3.5-5.0); ALKALINE PHOSPHATASE 85 U/L (38-126); ANION GAP 12 (5-19); ASPARTATE AMINO TRANSFERASE 35 U/L (17-59); BILIRUBIN,DIRECT 0.3 mg/dL (0.0-0.4); BILIRUBIN,TOTAL 0.7 mg/dL (0.2-1.3); BLOOD UREA NITROGEN 35 mg/dL (7-20); C-REACTIVE PROTEIN 13.2 mg/L (<10.0); CALCIUM 10.3 mg/dL (8.4-10.2); CARBON DIOXIDE 27 mmol/L (22-30); CHLORIDE 106 mmol/L (98-107); GLUCOSE 79 mg/dL (75-110); POTASSIUM 5.6 mmol/L (3.6-5.0); SODIUM 144.6 mmol/L (137-145); TOTAL PROTEIN 7.9 g/dL (6.3-8.2)
[2018-06-07 12:03] LABS: ERYTHROCYTE SEDIMENTATION RATE 35 mm/hr (0-20)
--- NOTE | 2018-06-07 12:22 | RADIOLOGY REPORT (SQ) ---
EXAM DESCRIPTION: FOOT LEFT COMPLETE COMPLETED DATE/TIME: 06/07/2018 11:43 am REASON FOR STUDY: NON PRESSURE ULCER LT FOOT NECROSIS OF MUSCLE;PNEUMOTHORAX L97.523 NON-PRS CHRONI C ULCER OTH PRT LEFT FOOT W NECROSIS O J93.9 PNEUMOTHORAX, UNSPECIFIED COMPARISON: 05/14/2018 NUMBER OF VIEWS: Three views. TECHNIQUE: AP, lateral and oblique radiographic images acquired of the left foot. LIMITATIONS: None. FINDINGS: MINERALIZATION: Normal. BONES: No acute fracture dislocation. Old 5th metatarsal fracture. Amputation of the 2nd digit dung g with a portion of the head of the 2nd metatarsal. Deformity of the 1st proximal phalanx suggesting prior injury. JOINTS: No effusions. SOFT TISSUES: No soft tissue swelling. No foreign body. OTHER: No other significant finding. IMPRESSION: No acute osseous abnormality. Findings as described. TECHNICAL DOCUMENTATION: JOB ID: [id number] [employer]- All Rights Reserved Reading location - IP/workstation name: [email or web address]
--- NOTE | 2018-06-07 12:31 | RADIOLOGY REPORT (SQ) ---
EXAM DESCRIPTION: CHEST PA/LATERAL COMPLETED DATE/TIME: 06/07/2018 11:43 am REASON FOR STUDY: NON PRESSURE ULCER LT FOOT NECROSIS OF MUSCLE;PNEUMOTHORAX COMPARISON: August 2016 EXAM PARAMETERS: NUMBER OF VIEWS: two views TECHNIQUE: Digital Frontal and Lateral radiographic views of the chest acquired. RADIATION DOSE: NA LIMITATIONS: none FINDINGS: LUNGS AND PLEURA: No opacities, masses or pneumothorax. No pleural effusion. MEDIASTINUM AND HILAR STRUCTURES: No masses or contour abnormalities. HEART AND VASCULAR STRUCTURES: Heart normal size. No evidence for failure. BONES: No acute findings. HARDWARE: Right-sided PICC line is identified with its tip at the approximate level of the confluenc e of subclavian veins or proximal right subclavian vein. OTHER: No other significant finding. IMPRESSION: NO SIGNIFICANT RADIOGRAPHIC FINDING IN THE CHEST. TECHNICAL DOCUMENTATION: JOB ID: [id number] [employer] All Rights Reserved Reading location - IP/workstation name: [email or web address]
== END ==
LOC: WC 10:45
PROVIDERS: ATTEND Surgery
DX: E11.621 Type 2 diabetes mellitus with foot ulcer (principal); L97.523 Non-pressure chronic ulcer of other part of left foot with necrosis of muscle; J93.9 Pneumothorax, unspecified
CPT/HCPCS: 36415; 71046; 80053; 83036; 85025; 85652; 86140

== ENCOUNTER 2020-05-22 12:56 | Emergency (ER) | payer OTHER, MEDICARE ==
[2020-05-22 13:18] LABS: ABSOLUTE BASOPHILS # (AUTO) 0.1 10^3/uL (0.0-0.2); ABSOLUTE EOSINOPHILS # (AUTO) 0.4 10^3/uL (0.0-0.6); ABSOLUTE LYMPHOCYTES (AUTO) 1.3 10^3/uL (0.5-4.7); ABSOLUTE MONOCYTES (AUTO) 0.9 10^3/uL (0.1-1.4); ABSOLUTE NEUT (AUTO) 6.4 10^3/uL (1.7-8.2); BASOPHILS % (AUTO) 1.3 % (0-2); EOSINOPHILS % (AUTO) 4.6 % (0-6); HEMATOCRIT 41.1 % (37.9-51.0); LYMPHOCYTES % (AUTO) 14.5 % (13-45); MEAN CORPUSCULAR HEMOGLOBIN 31.1 pg (27.0-33.4); MEAN CORPUSCULAR VOLUME 92 fl (80-97); MONOCYTES % (AUTO) 9.7 % (3-13); PLATELET COUNT 218 10^3/uL (150-450); RED BLOOD COUNT 4.49 10^6/uL (4.35-5.55); RED CELL DISTRIBUTION WIDTH 13.8 % (11.5-14.0); SEGMENTED NEUTROPHILS % (AUTO) 69.9 % (42-78); TOTAL CELLS COUNTED % (AUTO) 100 %; WHITE BLOOD COUNT 9.2 10^3/uL (4.0-10.5)
[2020-05-22 13:40] LABS: ALBUMIN 3.9 g/dL (3.5-5.0); ALCOHOL < 10 mg/dL (NONE DETECTED); ALKALINE PHOSPHATASE 82 U/L (38-126); ANION GAP 11 (5-19); ASPARTATE AMINO TRANSFERASE 34 U/L (17-59); BILIRUBIN,TOTAL 0.8 mg/dL (0.2-1.3); BLOOD UREA NITROGEN 20 mg/dL (7-20); CALCIUM 9.3 mg/dL (8.4-10.2); CARBON DIOXIDE 22 mmol/L (22-30); CHLORIDE 105 mmol/L (98-107); GLUCOSE 89 mg/dL (75-110); POTASSIUM 3.9 mmol/L (3.6-5.0); TOTAL PROTEIN 7.3 g/dL (6.3-8.2)
--- NOTE | 2020-05-22 13:41 | RADIOLOGY REPORT (SQ) ---
EXAM DESCRIPTION: CT HEAD WITHOUT IMAGES COMPLETED DATE/TIME: 05/22/2020 1:26 pm REASON FOR STUDY: bed 15 new onset seizure per dr bocanegra COMPARISON: None. TECHNIQUE: Axial images acquired through the brain without intravenous contrast. Images reviewed wi th bone, brain and subdural windows. Images stored on PACS. All CT scanners at this facility use dose modulation, iterative reconstruction, and/or weight based d osing when appropriate to reduce radiation dose to as low as reasonably achievable (ALARA). [facility]: Dose Right [facility]: CareDose [facility]: Dose Right [facility]: Teradose 4D [facility]: Smart [employer] RADIATION DOSE: CT Rad equipment meets quality standard of care and radiation dose reduction techniq ues were employed. CTDIvol: 53.2 mGy. DLP: 1124 mGy-cm.mGy. LIMITATIONS: None. FINDINGS: VENTRICLES: Prominent. CEREBRUM: No mass effect. No hemorrhage. No midline shift. Areas of low density in the white matte r most likely due to chronic micro-vascular ischemic change. No evidence for acute territorial infar ction. CEREBELLUM: No hemorrhage. No alteration of density. No evidence for acute infarction. EXTRAAXIAL SPACES: Age-related involutional change. No fluid collections. ORBITS AND GLOBE: Symmetrical contour of the globes. CALVARIUM: No depressed fracture. PARANASAL SINUSES: No air-fluid level. SOFT TISSUES: No hematoma. IMPRESSION: No acute intracranial hemorrhage or acute territorial infarct. Chronic changes of atrop hy and microvascular ischemia. EVIDENCE OF ACUTE STROKE: NO. TECHNICAL DOCUMENTATION: JOB ID: [id number] [facility] Quality ID # [id number]: Final reports with documentation of one or more dose reduction techniques (e.g., Au tomated exposure control, adjustment of the mA and/or kV according to patient size, use of iterative reconstruction technique) 2010 [employer]- All Rights Reserved Reading location - IP/workstation name: [email or web address]
--- NOTE | 2020-05-22 14:00 | RADIOLOGY REPORT (SQ) ---
EXAM DESCRIPTION: CT CERVICAL SPINE WITHOUT IMAGES COMPLETED DATE/TIME: 05/22/2020 1:26 pm REASON FOR STUDY: bed 15 new onset seizure per dr bocanegra COMPARISON: None. TECHNIQUE: Axial images acquired through the cervical spine without intravenous contrast. Images re viewed with lung, soft tissue and bone windows. Reconstructed coronal and sagittal MPR images review ed. Images stored on PACS. All CT scanners at this facility use dose modulation, iterative reconstruction, and/or weight based d osing when appropriate to reduce radiation dose to as low as reasonably achievable (ALARA). [facility]: Dose Right [facility]: CareDose [facility]: Dose Right [facility]: Teradose 4D [facility]: [employer] RADIATION DOSE: CT Rad equipment meets quality standard of care and radiation dose reduction techniq ues were employed. CTDIvol: 26.6 mGy. DLP: 578 mGy-cm. mGy. LIMITATIONS: None. FINDINGS: ALIGNMENT: Anatomic. MINERALIZATION: Normal. VERTEBRAL BODIES: No fractures or dislocation. DISCS: Multilevel disc space narrowing with osteophytes. FACETS, LATERAL MASSES, POSTERIOR ELEMENTS: Facet arthropathy. No fractures. No dislocation. No ac shane findings. HARDWARE: None in the spine. LUNG APICES AND SOFT TISSUES: No significant or acute findings. IMPRESSION: No acute fracture at the cervical spine. Degenerative changes. TECHNICAL DOCUMENTATION: JOB ID: [id number]-64 Quality ID # [id number]: Final reports with documentation of one or more dose reduction techniques (e.g., Au tomated exposure control, adjustment of the mA and/or kV according to patient size, use of iterative reconstruction technique) 2010 [employer]- All Rights Reserved Reading location - IP/workstation name: [email or web address]
[2020-05-22] MEDS ORDERED: DEXTROSE 50%-WATER 25 GM/50 ML DISP.SYRIN IV ONE (16:06)
--- NOTE | 2020-05-22 16:16 | ER Document Report ---
ED General - General Chief Complaint: possible syncope Stated Complaint: SEIZURE Time Seen by Provider: 05/22/20 16:04 Primary Care Provider: HENRRY OSBORN PA-C [Primary Care Provider] - Follow up as needed Information source: Emergency Med Personnel Notes: 64-year-old male arrives by EMS after he passed out while at [employer]. He is a IDDM reports he did eat breakfast today but is very drowsy. He also gave himself insulin (patient takes 90 units of insulin a.m. and also p.m. ) today.. Patient's sugar upon arrival was 79. He is very drowsy but awake enough to give us full history. He does not remember passing out at [employer]. Patient was shopping at [employer] and was not a worker there. Patient was given a 50 g dose of dextrose by nursing staff around 1615. He was also given some Pepsi to drink being awake enough to do so. Patient denies any history of seizures or strokes. His CT today was read as negative per radiology. TRAVEL OUTSIDE OF THE [place] IN LAST 30 DAYS: No - HPI Onset: Just prior to arrival Onset/Duration: Sudden Quality of pain: No pain Severity: Mild Associated symptoms: Weakness Exacerbated by: Movement Relieved by: Remaining still Similar symptoms previously: Yes Recently seen / treated by doctor: No - Related Data Allergies/Adverse Reactions: morphine Allergy (Verified 05/15/18 10:45) Abnormal behavior Past Medical History - General Information source: Patient, Emergency Med Personnel - Social History Smoking Status: Unknown if Ever Smoked Cigarette use (# per day): No Chew tobacco use (# tins/day): No Smoking Education Provided: No Frequency of alcohol use: None Drug Abuse: None Lives with: Family Family History: Reviewed & Not Pertinent, DM, Hyperlipidemia Patient has suicidal ideation: No Patient has homicidal ideation: No - Past Medical History Cardiac Medical History: Reports: Hx Hypercholesterolemia, Hx Hypertension Denies: Hx Congestive Heart Failure, Hx Coronary Artery Disease, Hx DVT, Hx Pulmonary Embolism Pulmonary Medical History: Reports: Hx Bronchitis Denies: Hx Asthma, Hx COPD Neurological Medical History: Denies: Hx Seizures Endocrine Medical History: Reports: Hx Diabetes Mellitus Type 2. Denies: Hx Diabetes Mellitus Type 1, Hx Hyperthyroidism, Hx Hypothyroidism Renal/ Medical History: Denies: Hx Peritoneal Dialysis GI Medical History: Denies: Hx Cirrhosis, Hx Hepatitis Musculoskeletal Medical History: Reports Hx Arthritis Skin Medical History: Denies Hx Eczema, Denies Hx Psoriasis Psychiatric Medical History: Denies: Hx Depression Infectious Medical History: Denies: Hx Hepatitis Past Surgical History: Reports: Hx Orthopedic Surgery - left hip Review of Systems - Review of Systems Constitutional: See HPI, Weakness EENT: See HPI, Blurred vision Cardiovascular: No symptoms reported Respiratory: No symptoms reported Gastrointestinal: No symptoms reported Genitourinary: No symptoms reported Male Genitourinary: No symptoms reported Musculoskeletal: No symptoms reported Skin: No symptoms reported Hematologic/Lymphatic: No symptoms reported Neurological/Psychological: No symptoms reported Physical Exam - Vital signs Vitals: Temp BP Pulse Ox 98.6 F 171/96 H 93 05/22/20 12:57 05/22/20 12:57 05/22/20 12:57 Interpretation: Hypertensive - General General appearance: Alert - To the daughter daughter - HEENT Head: Normocephalic, Atraumatic Eyes: Normal Pupils: PERRL Mucous membranes: Dry Pharynx: Normal Neck: Normal - Respiratory Respiratory status: No respiratory distress Chest status: Nontender Breath sounds: Normal Chest palpation: Normal - Cardiovascular Rhythm: Regular Heart sounds: Normal auscultation Murmur: No - Abdominal Inspection: Normal Distension: No distension Bowel sounds: Normal Tenderness: Nontender Organomegaly: No organomegaly - Rectal Hemorrhoids: Other - deferred - Back Back: Normal - Extremities General upper extremity: Normal inspection General lower extremity: Edema, Other - bilateral knees with ecchymosis around patella. Patient reports she fell around 2 days prior - Neurological Neuro grossly intact: Yes Cognition: Normal Orientation: AAOx4 Mana Coma Scale Eye Opening: Spontaneous Henderson Coma Scale Verbal: Oriented Henderson Coma Scale Motor: Obeys Commands Mana Coma Scale Total: 15 Speech: Normal Motor strength normal: LUE, RUE, LLE, RLE Sensory: Normal Course - Vital Signs Vital signs: Temp Pulse Resp BP Pulse Ox 98.7 F 20 169/103 H 97 05/22/20 13:10 05/22/20 16:01 05/22/20 16:00 05/22/20 16:01 - Laboratory Result Diagrams: 05/22/20 13:05 05/22/20 13:05 Laboratory results interpreted by me: 05/22/20 05/22/20 05/22/20 13:05 16:11 16:48 Creatinine 1.39 H Est GFR (MDRD) Non-Af 51 L POC Glucose 60 L Urine Glucose (UA) 150 H 05/22/20 16:58 Creatinine Est GFR (MDRD) Non-Af POC Glucose 224 H Urine Glucose (UA) Critical Care Note - Critical Care Note Total time excluding time spent on procedures (mins): 60 Comments: Nursing staff report a 60 blood sugar at 1612 Discharge - Discharge Clinical Impression: Atypical syncope, Hypoglycemia Condition: Good Disposition: HOME, SELF-CARE Additional Instructions: Follow-up with personal doctor and try to cut your insulin in half tonight and eat a high-calorie meal before bed. Return to ER if symptoms persist or worsen. Referrals: HENRRY OSBORN PA-C [Primary Care Provider] - Follow up as needed
[2020-05-22 17:36] LABS: APPEARANCE,URINE CLEAR; BILIRUBIN,URINE NEGATIVE (NEGATIVE); COLOR,URINE STRAW; GLUCOSE, URINE 150 mg/dL (NEGATIVE); KETONES,URINE NEGATIVE (NEGATIVE); LEUKOCYTE ESTERASE,URINE NEGATIVE (NEGATIVE); NITRITE,URINE NEGATIVE (NEGATIVE); PROTEIN,URINE NEGATIVE (NEGATIVE); URINE SPECIFIC GRAVITY 1.009; UROBILINOGEN,URINE NEGATIVE mg/dL (<2.0)
[2020-05-22 17:45] LABS: URINE AMPHETAMINES SCREEN NEGATIVE; URINE BARBITURATES SCREEN NEGATIVE; URINE BENZODIAZEPINES SCREEN NEGATIVE; URINE COCAINE SCREEN NEGATIVE; URINE MARIJUANA (THC) SCREEN NEGATIVE; URINE METHADONE SCREEN NEGATIVE; URINE PHENCYCLIDINE SCREEN NEGATIVE
[2020-05-22 19:57] VITALS: BP 169/110
== END 2020-05-22 20:05 | disposition home or self-care (01) ==
LOC: ER 12:56
DX: E11.649 Type 2 diabetes mellitus with hypoglycemia without coma (principal); Z79.4 Long term (current) use of insulin; R55 Syncope and collapse; R53.1 Weakness; H53.8 Other visual disturbances; S80.02XA Contusion of left knee, initial encounter; S80.01XA Contusion of right knee, initial encounter; W19.XXXA Unspecified fall, initial encounter; R60.0 Localized edema; I10 Essential (primary) hypertension; Z88.6 Allergy status to analgesic agent; Z88.5 Allergy status to narcotic agent
CPT/HCPCS: 99291; 96374; 36415; 82962; 80307 ×2; 83735; 85025; 80053; 81001; 70450; 72125; J3490

== ENCOUNTER 2020-08-16 13:27 | Observation (INO) | payer MEDICARE, OTHER ==
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
[2020-08-16 14:00] LABS: ABSOLUTE BASOPHILS # (AUTO) 0.1 10^3/uL (0.0-0.2); ABSOLUTE EOSINOPHILS # (AUTO) 0.2 10^3/uL (0.0-0.6); ABSOLUTE LYMPHOCYTES (AUTO) 1.4 10^3/uL (0.5-4.7); ABSOLUTE NEUT (AUTO) 6.7 10^3/uL (1.7-8.2); BASOPHILS % (AUTO) 0.6 % (0-2); EOSINOPHILS % (AUTO) 2.4 % (0-6); HEMATOCRIT 38.9 % (37.9-51.0); HEMOGLOBIN 13.5 g/dL (13.5-17.0); LYMPHOCYTES % (AUTO) 14.5 % (13-45); MEAN CORPUSCULAR HEMOGLOBIN 31.4 pg (27.0-33.4); MEAN CORPUSCULAR HGB CONC 34.6 g/dL (32.0-36.0); MEAN CORPUSCULAR VOLUME 91 fl (80-97); MONOCYTES % (AUTO) 11.2 % (3-13); PLATELET COUNT 230 10^3/uL (150-450); RED BLOOD COUNT 4.28 10^6/uL (4.35-5.55); RED CELL DISTRIBUTION WIDTH 14.4 % (11.5-14.0); SEGMENTED NEUTROPHILS % (AUTO) 71.3 % (42-78); TOTAL CELLS COUNTED % (AUTO) 100 %; WHITE BLOOD COUNT 9.4 10^3/uL (4.0-10.5)
[2020-08-16 14:19] LABS: ALKALINE PHOSPHATASE 92 U/L (38-126); ANION GAP 19 (5-19); ASPARTATE AMINO TRANSFERASE 26 U/L (17-59); BILIRUBIN,DIRECT 0.3 mg/dL (0.0-0.4); BILIRUBIN,TOTAL 0.6 mg/dL (0.2-1.3); BLOOD UREA NITROGEN 41 mg/dL (7-20); CALCIUM 9.2 mg/dL (8.4-10.2); CARBON DIOXIDE 17 mmol/L (22-30); CHLORIDE 106 mmol/L (98-107); POTASSIUM 3.7 mmol/L (3.6-5.0); TOTAL PROTEIN 7.1 g/dL (6.3-8.2)
[2020-08-16 14:21] LABS: ALCOHOL < 10 mg/dL (NONE DETECTED)
--- NOTE | 2020-08-16 14:29 | RADIOLOGY REPORT (SQ) ---
EXAM DESCRIPTION: CT HEAD WITHOUT IMAGES COMPLETED DATE/TIME: 08/16/2020 2:18 pm REASON FOR STUDY: seizure COMPARISON: 05/22/2020 TECHNIQUE: Axial images acquired through the brain without intravenous contrast. Images reviewed wi th bone, brain and subdural windows. Additional sagittal and coronal reconstructions were generated. Images stored on PACS. All CT scanners at this facility use dose modulation, iterative reconstruction, and/or weight based d osing when appropriate to reduce radiation dose to as low as reasonably achievable (ALARA). [facility]: Dose Right [facility]: CareDose [facility]: Dose Right [facility]: Teradose 4D [facility]: Easel RADIATION DOSE: CT Rad equipment meets quality standard of care and radiation dose reduction techniq ues were employed. CTDIvol: 53.2 mGy. DLP: 1044 mGy-cm. mGy. LIMITATIONS: None. FINDINGS: VENTRICLES: Prominent. CEREBRUM: No masses. No hemorrhage. No midline shift. Areas of low density in the white matter mos t likely due to chronic micro-vascular ischemic change. No evidence for acute infarction. CEREBELLUM: No masses. No hemorrhage. No alteration of density. No evidence for acute infarction. EXTRAAXIAL SPACES: Mild age-related involutional change. No fluid collections. No masses. ORBITS AND GLOBE: No intra- or extraconal masses. Normal contour of globe without masses. CALVARIUM: No fracture. PARANASAL SINUSES: No fluid or mucosal thickening. SOFT TISSUES: No mass or hematoma. OTHER: No other significant finding. IMPRESSION: MILD CHRONIC CHANGES OF ATROPHY AND MICROVASCULAR ISCHEMIA. NO ACUTE PROCESS. EVIDENCE OF ACUTE STROKE: NO. TECHNICAL DOCUMENTATION: JOB ID: [id number] Quality ID # [id number]: Final reports with documentation of one or more dose reduction techniques (e.g., Au tomated exposure control, adjustment of the mA and/or kV according to patient size, use of iterative reconstruction technique) 2010 [employer]- All Rights Reserved Reading location - IP/workstation name: [email or web address]
[2020-08-16 14:32] LABS: GLUCOSE 34 mg/dL (75-110)
[2020-08-16] MEDS ORDERED: DEXTROSE 50%-WATER 25 GM/50 ML DISP.SYRIN IV ONE ×4 (14:33→17:35)
--- NOTE | 2020-08-16 14:44 | RADIOLOGY REPORT (SQ) ---
EXAM DESCRIPTION: CHEST SINGLE VIEW IMAGES COMPLETED DATE/TIME: 08/16/2020 2:35 pm REASON FOR STUDY: seizure COMPARISON: 06/07/2018 EXAM PARAMETERS: NUMBER OF VIEWS: One view. TECHNIQUE: Single frontal radiographic view of the chest acquired. RADIATION DOSE: NA LIMITATIONS: None. FINDINGS: LUNGS AND PLEURA: Stable elevation of the right hemidiaphragm. No consolidation or effusi ons. No pneumothorax. MEDIASTINUM AND HILAR STRUCTURES: No masses. Contour normal. HEART AND VASCULAR STRUCTURES: Heart normal in size. Normal vasculature. BONES: No acute findings. HARDWARE: None in the chest. OTHER: No other significant finding. IMPRESSION: Stable chest. No acute findings. TECHNICAL DOCUMENTATION: JOB ID: [id number] 2010 [employer]- All Rights Reserved Reading location - IP/workstation name: [email or web address]
[2020-08-16] MEDS ORDERED: NORMAL SALINE 1000 ML 1,000 ML IV ONE (15:30)
[2020-08-16] MEDS ORDERED: POTASSI CL 10 MEQ/D5-1/2NS 1L 10 MEQ/1,000 ML RTUINJ IV PRN ×2 (17:14→20:25)
[2020-08-16 18:32] LABS: APPEARANCE,URINE CLEAR; BILIRUBIN,URINE NEGATIVE (NEGATIVE); COLOR,URINE YELLOW; GLUCOSE, URINE NEGATIVE (NEGATIVE); KETONES,URINE NEGATIVE (NEGATIVE); LEUKOCYTE ESTERASE,URINE NEGATIVE (NEGATIVE); NITRITE,URINE NEGATIVE (NEGATIVE); PROTEIN,URINE 30 mg/dL (NEGATIVE); URINE SPECIFIC GRAVITY 1.017; UROBILINOGEN,URINE NEGATIVE mg/dL (<2.0)
[2020-08-16 18:46] LABS: URINE AMPHETAMINES SCREEN NEGATIVE; URINE BARBITURATES SCREEN NEGATIVE; URINE BENZODIAZEPINES SCREEN NEGATIVE; URINE COCAINE SCREEN NEGATIVE; URINE MARIJUANA (THC) SCREEN NEGATIVE; URINE METHADONE SCREEN NEGATIVE; URINE PHENCYCLIDINE SCREEN NEGATIVE
[2020-08-16] MEDS ORDERED: IPRATROPIUM/ALBUTEROL 0.5-2.5 MG/3 ML AMPUL NEB PRN (19:56)
[2020-08-16] MEDS ORDERED: PROMETHAZINE HCL INJ 25 MG/1 ML VIAL IV PRN (19:56)
[2020-08-16] MEDS ORDERED: MAG HYDROX/AL HYDROX/SIMETH SUSP 30 ML UDCUP PO PRN (19:56)
[2020-08-16] MEDS ORDERED: MAGNESIUM HYDROXIDE SUSP 30 ML UDCUP PO PRN (19:56)
[2020-08-16] MEDS ORDERED: HYDRALAZINE HCL INJ/PF 20 MG/1 ML SDV IV PRN (20:08)
[2020-08-16] MEDS ORDERED: DEXTROSE 50%-WATER 25 GM/50 ML DISP.SYRIN IV PRN ×2 (20:13)
[2020-08-16] MEDS ORDERED: DEXTROSE 40% GEL 15 GM TUBE PO PRN ×2 (20:13)
[2020-08-16] MEDS ORDERED: GLUCAGON,HUMAN RECOMB 1 MG INJ IM PRN (20:13)
[2020-08-16] MEDS ORDERED: METOPROLOL TARTRATE PF/INJ 5 MG/5 ML SDV IV PRN (20:23)
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
[2020-08-16] MEDS ORDERED: LISINOPRIL 5 MG TABLET PO ONE (21:30)
[2020-08-16] MEDS: INSULIN LISPRO 100 UNIT/ML 3 ML VIAL SUBCUT SCH (21:48)
[2020-08-16] MEDS ORDERED: INSULIN LISPRO 100 UNIT/ML 3 ML VIAL SUBCUT SCH (22:00)
[2020-08-16 22:45] LABS: ANION GAP 9 (5-19); BLOOD UREA NITROGEN 37 mg/dL (7-20); CALCIUM 8.6 mg/dL (8.4-10.2); CARBON DIOXIDE 23 mmol/L (22-30); CHLORIDE 105 mmol/L (98-107); GLUCOSE 116 mg/dL (75-110); POTASSIUM 3.9 mmol/L (3.6-5.0)
[2020-08-16] MEDS: CLONIDINE HCL 0.1 MG TABLET PO SCH (23:53)
[2020-08-16] MEDS: HYDRALAZINE HCL 50 MG TABLET PO SCH (23:53)
[2020-08-16] MEDS: LORAZEPAM 0.5 MG TABLET PO SCH (23:54)
[2020-08-16] MEDS: HEPARIN SOD (PORCINE) 5,000 UNIT/ML 1 ML VIAL SUBCUT SCH (23:54)
[2020-08-17] MEDS: INSULIN LISPRO 100 UNIT/ML 3 ML VIAL SUBCUT SCH ×7 (00:09→22:34)
[2020-08-17] MEDS: ACETAMINOPHEN 325 MG TABLET PO PRN ×2 (05:38→22:45)
[2020-08-17] MEDS: HEPARIN SOD (PORCINE) 5,000 UNIT/ML 1 ML VIAL SUBCUT SCH ×3 (05:39→22:38)
[2020-08-17] MEDS: HYDRALAZINE HCL 50 MG TABLET PO SCH ×3 (05:39→22:39)
[2020-08-17] MEDS: PANTOPRAZOLE SODIUM 40 MG TABLET.DR PO SCH (05:39)
[2020-08-17 07:14] LABS: ANION GAP 8 (5-19); BLOOD UREA NITROGEN 30 mg/dL (7-20); CALCIUM 8.4 mg/dL (8.4-10.2); CARBON DIOXIDE 23 mmol/L (22-30); CHLORIDE 107 mmol/L (98-107); GLUCOSE 156 mg/dL (75-110); POTASSIUM 3.9 mmol/L (3.6-5.0)
[2020-08-17] MEDS ORDERED: (PENDING PHARMACY ID) (Clonazepam [Clonazepam] 0.5 MG) PO SCH (10:00)
[2020-08-17] MEDS: INSULIN REG, HUMAN 100 UNIT/ML 3 ML VIAL (PYX) SUBCUT SCH ×2 (10:36→18:00)
[2020-08-17] MEDS: CLONAZEPAM 1 MG TABLET PO SCH (10:37)
[2020-08-17] MEDS: CLONIDINE HCL 0.1 MG TABLET PO SCH ×2 (10:37→22:38)
[2020-08-17] MEDS: SIMVASTATIN 40 MG TABLET PO SCH (10:38)
[2020-08-17] MEDS: METOPROLOL SUCCINATE 50 MG TAB.SR.24H PO SCH (10:38)
[2020-08-17] MEDS: DOCUSATE SODIUM 100 MG CAPSULE PO SCH ×2 (10:38→18:00)
[2020-08-17] MEDS: LORAZEPAM 0.5 MG TABLET PO SCH (10:38)
[2020-08-17] MEDS: LISINOPRIL 5 MG TABLET PO SCH (10:39)
[2020-08-17] MEDS: SERTRALINE HCL 50 MG TABLET PO SCH (10:39)
[2020-08-17] MEDS: NORMAL SALINE 1000 ML 1,000 ML IV PRN ×3 (11:20→22:01)
--- NOTE | 2020-08-17 15:57 | PDOC PROGRESS REPORT ---
Subjective Progress Note for:: 08/17/20 Subjective:: The patient is a 65-year-old male with a past medical history of hypertension, hyperlipidemia, insulin-dependent diabetes mellitus CKD, arthritis, depression/anxiety who was admitted 08/16/2020 with hypoglycemia related seizure. Patient was seen on morning rounds. He is found resting in bed, comfortably, on room air. He was sleeping but woke easily when I said his name. He reports continued fatigue and generalized body aches but no focal discomfort. Patient reports that he typically takes 90 units of Humalog R twice daily goal of blood glucose 90-110. We discussed that due to his hypoglycemic event and seizure activity, we wanted to liberalize his glycemic control slightly; UNR was being decreased and his goal should be to maintain a glucose of 110-130 until he follows up with his primary care provider and/or renewals specialist. He does report difficulty w/ hypoglycemia in the past. Hgb A1C is 7.5%. I imagine that his hypoglycemic events may be r/t taking his Humulin w/o consistent p.o intake. He denies fever, chills, chest pain, palpitations, dyspnea, orthopnea, abd pain, nausea and vomiting. He has no other questions or concerns. No concerns per nursing. Reason For Visit: HYPOGLYCEMIC SEIZURE,HYPERTENSION,DIABETES MELLITU Physical Exam Vital Signs: Temp Pulse Resp BP Pulse Ox 97.7 F 91 14 149/76 H 93 08/17/20 07:45 08/17/20 12:39 08/17/20 12:39 08/17/20 07:45 08/17/20 12:39 Intake & Output 08/16/20 08/17/20 08/18/20 06:59 06:59 06:59 Intake Total 1000 118 Balance 1000 118 Weight 119 kg General appearance: PRESENT: no acute distress, cooperative, well-developed, well-nourished - overweight Head exam: PRESENT: atraumatic, normocephalic Eye exam: PRESENT: conjunctiva pink, EOMI, PERRLA. ABSENT: scleral icterus Mouth exam: PRESENT: moist, tongue midline Teeth exam: PRESENT: poor dentation Respiratory exam: PRESENT: clear to auscultation pee, symmetrical, unlabored. ABSENT: rales, rhonchi, wheezes Cardiovascular exam: PRESENT: RRR, +S1, +S2. ABSENT: diastolic murmur, rubs, systolic murmur Vascular exam: PRESENT: normal capillary refill GI/Abdominal exam: PRESENT: normal bowel sounds, soft. ABSENT: distended, guarding, mass, organolmegaly, rebound, tenderness Rectal exam: PRESENT: deferred Extremities exam: PRESENT: full ROM. ABSENT: calf tenderness, clubbing, pedal edema Neurological exam: PRESENT: alert, awake, oriented to person, oriented to place, oriented to time, oriented to situation, CN II-XII grossly intact. ABSENT: motor sensory deficit Psychiatric exam: PRESENT: appropriate affect, normal mood. ABSENT: homicidal ideation, suicidal ideation Skin exam: PRESENT: dry, intact, warm. ABSENT: cyanosis, rash Results Laboratory Results: 08/16/20 13:35 08/17/20 06:27 08/16/20 08/16/20 08/17/20 18:00 22:17 06:27 Sodium 137.3 138.2 Potassium 3.9 3.9 Chloride 105 107 Carbon Dioxide 23 23 Anion Gap 9 8 BUN 37 H 30 H Creatinine 2.16 H 1.92 H Est GFR ( Amer) 37 L 42 L Glucose 116 H 156 H Calcium 8.6 8.4 Magnesium 2.0 Urine Color YELLOW Urine Appearance CLEAR Urine pH 5.0 Ur Specific [place] 1.017 Urine Protein 30 H Urine Glucose (UA) NEGATIVE Urine Ketones NEGATIVE Urine Blood SMALL H Urine Nitrite NEGATIVE Ur Leukocyte Esterase NEGATIVE Urine WBC (Auto) 3 Urine RBC (Auto) 37 Impressions: Chest X-Ray 08/16/20 13:47 IMPRESSION: Stable chest. No acute findings. Head CT 08/16/20 13:47 IMPRESSION: MILD CHRONIC CHANGES OF ATROPHY AND MICROVASCULAR ISCHEMIA. NO ACU TE PROCESS. EVIDENCE OF ACUTE STROKE: NO. Assessment and Plan - Diagnosis (1) Seizure Is this a current diagnosis for this admission?: Yes Plan: Secondary to the hypoglycemia. Postictal state has resolved. Adjustments to diabetic regiment as below. (2) Diabetes mellitus type 2 with complications Is this a current diagnosis for this admission?: Yes Plan: Hemoglobin A1c 7.5%. Patient is placed on a cardiac/consistent carb diet. Resume home dose Tradjenta. Start Humulin 35 units twice daily (patient takes 90 units at home) Accu-Cheks before meals and at bedtime with Humalog for sliding scale coverage. Hypoglycemia protocol in place. Registered dietitian and certified breastfeeding educator consulted. (3) Acute worsening of stage 3 chronic kidney disease Is this a current diagnosis for this admission?: Yes Plan: Improved; Cr 2.39-> 2.16-> 1.92 Baseline 1.44 Multifactorial r/t diabetic medications, dehydration, and hypoglycemia resulting in seizure. Continue gentle IVF Avoid nephrotoxic medications. Follow up chemistry (4) Back pain Qualifiers: Back pain location: low back pain Chronicity: chronic Back pain laterality: midline Sciatica presence: unspecified whether sciatica present Qualified Code(s): M54.5 - Low back pain; G89.29 - Other chronic pain Is this a current diagnosis for this admission?: Yes Plan: Improved; patient reports mild, generalized, discomfort today. Continue to avoid narcotics and other sedating medications. With his chronic kidney disease cannot use nonsteroidal anti-inflammatory medications. Tylenol and nonpharmacological interventions (5) Constipation Is this a current diagnosis for this admission?: Yes Plan: Improved; 1 documented bowel movement. Continue Colace twice daily. Milk of magnesia nightly as needed (6) Depression with anxiety Is this a current diagnosis for this admission?: Yes Plan: Continue home dose Zoloft and Klonopin. (7) HTN (hypertension) Qualifiers: Hypertension type: essential hypertension Is this a current diagnosis for this admission?: Yes Plan: Still slightly elevated but overall improved. Continue home dose clonidine, hydralazine, Toprol. Has been started on lisinopril 5 mg daily. Cardiac diet. IV Lopressor and/or hydralazine as needed for blood pressure control. (8) Hyperlipidemia Qualifiers: Hyperlipidemia type: other hyperlipidemia Is this a current diagnosis for this admission?: Yes Plan: Continue simvastatin 40 mg daily Cardiac diet (9) Hypoglycemia Is this a current diagnosis for this admission?: Yes Plan: Resolved. - Time Time Spent with patient: 25-34 minutes Medications reviewed and adjusted accordingly: Yes Anticipated Discharge Disposition: Home, Self Care Anticipated Discharge Timeframe: within 48 hours - pending adjustments to Diabetic medications
[2020-08-18] MEDS: INSULIN LISPRO 100 UNIT/ML 3 ML VIAL SUBCUT SCH ×6 (02:10→22:35)
[2020-08-18] MEDS: ACETAMINOPHEN 325 MG TABLET PO PRN ×3 (06:16→23:18)
[2020-08-18] MEDS: HEPARIN SOD (PORCINE) 5,000 UNIT/ML 1 ML VIAL SUBCUT SCH ×3 (06:16→23:14)
[2020-08-18] MEDS: PANTOPRAZOLE SODIUM 40 MG TABLET.DR PO SCH (06:16)
[2020-08-18] MEDS: HYDRALAZINE HCL 50 MG TABLET PO SCH ×3 (06:17→23:14)
[2020-08-18 06:21] LABS: ANION GAP 6 (5-19); BLOOD UREA NITROGEN 21 mg/dL (7-20); CARBON DIOXIDE 22 mmol/L (22-30); CHLORIDE 111 mmol/L (98-107); GLUCOSE 158 mg/dL (75-110); POTASSIUM 4.2 mmol/L (3.6-5.0)
[2020-08-18] MEDS: INSULIN REG, HUMAN 100 UNIT/ML 3 ML VIAL (PYX) SUBCUT SCH ×2 (09:52→19:00)
[2020-08-18] MEDS: CLONAZEPAM 1 MG TABLET PO SCH (09:53)
[2020-08-18] MEDS: DOCUSATE SODIUM 100 MG CAPSULE PO SCH ×3 (09:55→18:57)
[2020-08-18] MEDS: LISINOPRIL 5 MG TABLET PO SCH (09:56)
[2020-08-18] MEDS: SERTRALINE HCL 50 MG TABLET PO SCH (09:58)
[2020-08-18] MEDS: SIMVASTATIN 40 MG TABLET PO SCH (09:59)
[2020-08-18] MEDS: METOPROLOL SUCCINATE 50 MG TAB.SR.24H PO SCH (09:59)
[2020-08-18] MEDS: CLONIDINE HCL 0.1 MG TABLET PO SCH ×2 (09:59→23:14)
[2020-08-18] MEDS ORDERED: (PENDING PHARMACY ID) (Linagliptin [Tradjenta] 5 MG) PO SCH (10:00)
[2020-08-18] MEDS: SITAGLIPTIN PHOSPHATE 50 MG TABLET PO SCH ×2 (10:01→10:13)
--- NOTE | 2020-08-18 15:37 | PDOC PROGRESS REPORT ---
Subjective Progress Note for:: 08/18/20 Subjective:: The patient is a 65-year-old male with a past medical history of hypertension, hyperlipidemia, insulin-dependent diabetes mellitus CKD, arthritis, depression/anxiety who was admitted 08/16/2020 with hypoglycemia related seizure. Patient was seen on morning rounds. He is found resting in bed, comfortably, on room air. He reports he is feeling well. No further hypoglycemic symptoms. Appetite is returned. Discussed that he will be discharged on lower insulin dos e than he has been taking recently with instructions for increased frequency of glucose checks and close PCP follow up. Discussed importance of dietary compliance. He denies fever, chills, chest pain, palpitations, dyspnea, orthopnea, abd pain, nausea and vomiting. He has no questions or concerns at this time. Looking forward to likely discharge in the morning. No concerns per nursing. Reason For Visit: HYPOGLYCEMIC SEIZURE,HYPERTENSION,DIABETES MELLITU Physical Exam Vital Signs: Temp Pulse Resp BP Pulse Ox 98.2 F 81 14 138/73 H 91 L 08/18/20 11:57 08/18/20 14:26 08/18/20 14:26 08/18/20 11:57 08/18/20 14:26 Intake & Output 08/17/20 08/18/20 08/19/20 06:59 06:59 06:59 Intake Total 1000 2647 240 Balance 1000 2647 240 Weight 119 kg 120 kg General appearance: PRESENT: no acute distress, cooperative, obese, well- developed, well-nourished Head exam: PRESENT: atraumatic, normocephalic Eye exam: PRESENT: conjunctiva pink, EOMI, PERRLA. ABSENT: scleral icterus Mouth exam: PRESENT: moist, tongue midline Teeth exam: PRESENT: poor dentation Respiratory exam: PRESENT: clear to auscultation pee, symmetrical, unlabored. ABSENT: rales, rhonchi, wheezes Cardiovascular exam: PRESENT: RRR, +S1, +S2. ABSENT: diastolic murmur, rubs, systolic murmur Vascular exam: PRESENT: normal capillary refill Extremities exam: PRESENT: full ROM. ABSENT: calf tenderness, clubbing, pedal edema Neurological exam: PRESENT: alert, awake, oriented to person, oriented to place, oriented to time, oriented to situation, CN II-XII grossly intact. ABSENT: motor sensory deficit Psychiatric exam: PRESENT: appropriate affect, normal mood. ABSENT: homicidal ideation, suicidal ideation Skin exam: PRESENT: dry, intact, warm. ABSENT: cyanosis, rash Results Laboratory Results: 08/16/20 13:35 08/18/20 05:39 08/18/20 05:39 Sodium 138.5 Potassium 4.2 Chloride 111 H Carbon Dioxide 22 Anion Gap 6 BUN 21 H Creatinine 1.56 H Est GFR ( Amer) 54 L Glucose 158 H Calcium 8.0 L Impressions: Chest X-Ray 08/16/20 13:47 IMPRESSION: Stable chest. No acute findings. Head CT 08/16/20 13:47 IMPRESSION: MILD CHRONIC CHANGES OF ATROPHY AND MICROVASCULAR ISCHEMIA. NO ACUTE PROCESS. EVIDENCE OF ACUTE STROKE: NO. Assessment and Plan - Diagnosis (1) Seizure Is this a current diagnosis for this admission?: Yes Plan: No seizure x48 hrs Secondary to the hypoglycemia. Postictal state has resolved. Adjustments to diabetic regiment as below. (2) Diabetes mellitus type 2 with complications Is this a current diagnosis for this admission?: Yes Plan: Hemoglobin A1c 7.5%. Patient is placed on a cardiac/consistent carb diet. Decrease to Humulin 20 units twice daily (patient takes 90 units at home) r/t mid-day relative hypoglycemia (bgl 71) Accu-Cheks before meals and at bedtime with Humalog for sliding scale coverage. Hypoglycemia protocol in place. Registered dietitian and community educator consulted. (3) Acute worsening of stage 3 chronic kidney disease Is this a current diagnosis for this admission?: Yes Plan: Resolved; Cr 2.39-> 2.16-> 1.92-> 1.56 Baseline 1.44 Multifactorial r/t diabetic medications, dehydration, and hypoglycemia resulting in seizure. Avoid nephrotoxic medications. Follow up chemistry (4) Back pain Qualifiers: Back pain location: low back pain Chronicity: chronic Back pain laterality: midline Sciatica presence: unspecified whether sciatica present Qualified Code(s): M54.5 - Low back pain; G89.29 - Other chronic pain Is this a current diagnosis for this admission?: Yes Plan: Improved; patient reports mild, generalized, discomfort today. Continue to avoid narcotics and other sedating medications. With his chronic kidney disease cannot use nonsteroidal anti-inflammatory medications. Tylenol and nonpharmacological interventions (5) Constipation Is this a current diagnosis for this admission?: Yes Plan: Improved; 1 documented bowel movement. Continue Colace twice daily. Milk of magnesia nightly as needed (6) Depression with anxiety Is this a current diagnosis for this admission?: Yes Plan: Continue home dose Zoloft and Klonopin. (7) HTN (hypertension) Qualifiers: Hypertension type: essential hypertension Is this a current diagnosis for this admission?: Yes Plan: Acceptable. Continue home dose clonidine, hydralazine, Toprol. Has been started on lisinopril 5 mg daily. Cardiac diet. IV Lopressor and/or hydralazine as needed for blood pressure control. (8) Hyperlipidemia Qualifiers: Hyperlipidemia type: other hyperlipidemia Is this a current diagnosis for this admission?: Yes Plan: Continue simvastatin 40 mg daily Cardiac diet (9) Hypoglycemia Is this a current diagnosis for this admission?: Yes Plan: Resolved. - Time Time Spent with patient: 25-34 minutes Medications reviewed and adjusted accordingly: Yes Anticipated Discharge Disposition: Home, Self Care Anticipated Discharge Timeframe: within 24 hours
[2020-08-19] MEDS: INSULIN LISPRO 100 UNIT/ML 3 ML VIAL SUBCUT SCH ×3 (02:39→10:36)
[2020-08-19] MEDS: HYDRALAZINE HCL 50 MG TABLET PO SCH (05:32)
[2020-08-19] MEDS: ACETAMINOPHEN 325 MG TABLET PO PRN (05:32)
[2020-08-19] MEDS: PANTOPRAZOLE SODIUM 40 MG TABLET.DR PO SCH (05:32)
[2020-08-19] MEDS: HEPARIN SOD (PORCINE) 5,000 UNIT/ML 1 ML VIAL SUBCUT SCH (05:33)
[2020-08-19 07:12] LABS: ANION GAP 9 (5-19); BLOOD UREA NITROGEN 19 mg/dL (7-20); CALCIUM 8.5 mg/dL (8.4-10.2); CARBON DIOXIDE 20 mmol/L (22-30); CHLORIDE 110 mmol/L (98-107); GLUCOSE 143 mg/dL (75-110); POTASSIUM 4.6 mmol/L (3.6-5.0)
[2020-08-19] MEDS: INSULIN REG, HUMAN 100 UNIT/ML 3 ML VIAL (PYX) SUBCUT SCH (08:43)
[2020-08-19] MEDS: CLONIDINE HCL 0.1 MG TABLET PO SCH (09:47)
[2020-08-19] MEDS: SERTRALINE HCL 50 MG TABLET PO SCH (09:47)
[2020-08-19] MEDS: CLONAZEPAM 1 MG TABLET PO SCH (09:47)
[2020-08-19] MEDS: LISINOPRIL 5 MG TABLET PO SCH (09:48)
[2020-08-19] MEDS: SIMVASTATIN 40 MG TABLET PO SCH (09:48)
[2020-08-19] MEDS: METOPROLOL SUCCINATE 50 MG TAB.SR.24H PO SCH (09:48)
[2020-08-19] MEDS: DOCUSATE SODIUM 100 MG CAPSULE PO SCH ×2 (09:48→09:53)
[2020-08-19 11:33] VITALS: BP 160/70
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
== END 2020-08-19 13:20 | disposition home or self-care (01) ==
LOC: ER 13:27 → EH 19:17 → 4S 23:39
PROVIDERS: ADMIT Hospitalist; ATTEND Registered Nurse
DX: G40.89 Other seizures (principal); I12.9 Hypertensive chronic kidney disease with stage 1 through stage 4 chronic kidney disease, or unspecified chronic kidney disease; E11.22 Type 2 diabetes mellitus with diabetic chronic kidney disease; E11.649 Type 2 diabetes mellitus with hypoglycemia without coma; N18.3 Chronic kidney disease, stage 3 (moderate); K59.00 Constipation, unspecified; E78.49 Other hyperlipidemia; G89.29 Other chronic pain; M54.5 Low back pain; F41.8 Other specified anxiety disorders; R32 Unspecified urinary incontinence; E66.9 Obesity, unspecified; R00.0 Tachycardia, unspecified; R19.7 Diarrhea, unspecified; S01.552A Open bite of oral cavity, initial encounter; X58.XXXA Exposure to other specified factors, initial encounter; M19.90 Unspecified osteoarthritis, unspecified site; E86.0 Dehydration; Z66 Do not resuscitate; Z79.899 Other long term (current) drug therapy; Z79.4 Long term (current) use of insulin; Z87.891 Personal history of nicotine dependence
CPT/HCPCS: 96376; 99285; 96361; 96375; 96365; 96366; 36415 ×4; 82962 ×4; 80307 ×2; 83735 ×2; 85025; 80048 ×3; 80053; 81001; 83036; 71045; 70450; G0378 ×5; A9270 ×37; J1644 ×4; J3490 ×3; J3480 ×2; J7030 ×2; J1815